=== PATIENT | male | born 1940 | race Caucasian/White ===

== ENCOUNTER → 2023-12-01 12:27 | Outpatient (REF) | payer OTHER, SELFPAY ==
[2023-12-01 16:41] LABS: Blood Urea Nitrogen 30 mg/dl (9-20); Calcium 9.5 mg/dl (8.4-10.2); Carbon Dioxide 28 mmol/L (22-30); Chloride 102 mmol/L (98-107); Glucose 244 mg/dl (70-99); Potassium 4.7 mmol/L (3.5-5.1); Sodium 138 mmol/L (135-145); eGFR > 60.00
== END ==
LOC: HWLAB 12:27
PROVIDERS: ATTENDING PHYSICIAN Surgery Vascular Surgery; FAMILY PHYSICIAN Family Medicine
DX: I73.9 Peripheral vascular disease, unspecified (principal)
CPT/HCPCS: 36415; 80048

== ENCOUNTER → 2023-12-12 09:45 | Outpatient (REF) | payer OTHER, SELFPAY | LOC: HWRAD 09:45 | PROVIDERS: ATTENDING PHYSICIAN Surgery Vascular Surgery; FAMILY PHYSICIAN Family Medicine | DX: I73.9 Peripheral vascular disease, unspecified (principal) | CPT/HCPCS: 75635; Q9967 ==

== ENCOUNTER → 2024-01-16 08:30 | Outpatient (REF) | payer OTHER, SELFPAY | LOC: HWRAD 08:30 | PROVIDERS: ATTENDING PHYSICIAN Surgery Vascular Surgery; FAMILY PHYSICIAN Family Medicine | DX: I73.9 Peripheral vascular disease, unspecified (principal) | CPT/HCPCS: 73630 ==

== ENCOUNTER → 2024-06-25 07:41 | Outpatient (REF) | payer OTHER, SELFPAY | LOC: DHVS 07:41 | PROVIDERS: ATTENDING PHYSICIAN Surgery Vascular Surgery; FAMILY PHYSICIAN Physician Assistant | DX: I73.9 Peripheral vascular disease, unspecified (principal) | CPT/HCPCS: 93922; 93925 ==

== ENCOUNTER → 2025-01-19 08:36 | Outpatient (REF) | payer OTHER, SELFPAY | LOC: RAD 08:36 | PROVIDERS: ATTENDING PHYSICIAN Surgery Vascular Surgery; FAMILY PHYSICIAN Family Medicine | DX: I73.9 Peripheral vascular disease, unspecified (principal) | CPT/HCPCS: 93922; 93925 ==

== ENCOUNTER → 2025-04-26 12:22 | Outpatient (REF) | payer OTHER, SELFPAY | LOC: HWRAD 12:22 | DX: J18.9 Pneumonia, unspecified organism (principal); R05.3 Chronic cough | CPT/HCPCS: 71046 ==

== ENCOUNTER → 2025-08-02 08:40 | Outpatient (REF) | payer OTHER, SELFPAY | LOC: RAD 08:40 | PROVIDERS: ATTENDING PHYSICIAN Physician Assistant; FAMILY PHYSICIAN Family Medicine | DX: I73.9 Peripheral vascular disease, unspecified (principal) | CPT/HCPCS: 93922; 93925 ==

== ENCOUNTER 2025-09-01 18:26 | Inpatient (IN) | payer OTHER, SELFPAY ==
[2025-09-01] VITALS (7 sets, daily range): BP systolic 115–139; BP diastolic 43–83; BMI 26.3; BMI 26.2
[2025-09-01 15:42] LABS: Hematocrit 34.7 % (39.0-52.0); Hemoglobin 11.8 g/dL (13.0-18.0); Mean Corp Hgb Conc. 34.0 g/dL (33.0-37.0); Mean Corpuscular Volume 103.6 fL (80.0-94.0); Nucleated Red Blood Cells % 0 % (-); Platelet Count 313 10^3/uL (130-400); Red Cell Dist. Width 13.3 % (11.5-14.5)
[2025-09-01 15:50] LABS: INR 1.26; PT 15.6 Sec (11.4-14.6)
[2025-09-01 15:51] LABS: APTT 29.6 Sec (23.4-35.0)
[2025-09-01 15:55] LABS: ALT (SGPT) 34 U/L (0-50); AST (SGOT) 41 U/L (17-59); Albumin 3.6 g/dl (3.5-5.0); Alkaline Phosphatase 111 U/L (38-126); Blood Urea Nitrogen 30 mg/dl (9-20); Calcium 9.1 mg/dl (8.4-10.2); Carbon Dioxide 28 mmol/L (22-30); Chloride 103 mmol/L (98-107); Estimated Creatinine Clearance 79 ml/min; Glucose 229 mg/dl (70-99); Potassium 4.6 mmol/L (3.5-5.1); Sodium 136 mmol/L (135-145); Total Protein 6.3 g/dl (6.3-8.2); eGFR > 60.00
[2025-09-01 16:11] LABS: Troponin I 2.730 ng/ml
--- NOTE | 2025-09-01 16:46 | ED.GENMED ---
History of Present Illness
General
Chief Complaint: Chest Pain
Source: patient and family
Time Seen by Provider: 09/01/25 15:13
History of Present Illness
History of Present Illness:
Note:
CHIEF COMPLAINT(S)
Concerns of potential heart attack.
HISTORY OF PRESENT ILLNESS
The patient is an 84-year-old male with a prior diagnosis of atrial fibrillation and peripheral vascular disease, presenting with concerns regarding a possible heart attack. Over the past weekend, the patient reports episodes of chest pain located
under the arm and down the left arm, occurring over three consecutive nights with varying severity. The pain was accompanied by a sensation of dyspepsia. No chest pain has occurred since the weekend. today, the patient also experienced new-onset
exertional dyspnea, noting that he becomes short of breath after walking approximately 12 feet, which was not previously an issue.
PAST MEDICAL AND SURGICAL HISTORY
The patient reports a history of atrial fibrillation, diabetes mellitus, peripheral vascular disease, hypertension, high cholesterol, and previous toe removal due to a foot infection.
CHRONIC MEDICAL CONDITIONS SIGNIFICANTLY AFFECTING CARE
The patient has a history of atrial fibrillation, diabetes mellitus, peripheral vascular disease, hypertension, and hyperlipidemia.
SOCIAL DETERMINANTS AFFECTING HEALTH
The patient did not mention any significant barriers to healthcare or other social determinants affecting health.
MEDICATIONS
The patient mentions not being on anticoagulants for atrial fibrillation, and a past issue with a medication affecting blood flow to extremities, beginning with a 'W.' Current medication details were provided separately to healthcare staff.
REVIEW OF SYSTEMS
- Cardiovascular: Reports chest pain over the weekend, with no current pain.
- Respiratory: Shortness of breath upon exertion.
- Gastrointestinal: Sensation of indigestion during chest pain episodes.
- Musculoskeletal: History of left above-knee amputation and generalized edema in the right lower extremity.
PHYSICAL EXAM
General: Alert, no acute distress.
Skin: Warm, dry.
Head: Normocephalic, atraumatic.
Neck: Supple, trachea midline.
Eye Ears, nose, mouth and throat: Oral mucosa moist.
Cardiovascular: Irregularly irregular heart rate of 82, no murmurs noted.
Respiratory: Fine crackles heard at lung bases.
Gastrointestinal: Abdomen non-distended.
Back: Normal range of motion, Normal alignment.
Musculoskeletal: L AKA noted. RLE with moderate edema.
Neurological: Alert and oriented to person, place, time, and situation, No focal neurologic deficit observed.
Psychiatric: Cooperative, appropriate mood and affect.
PROBLEM LIST
Acute:
- Chest pain over the weekend
- Exertional dyspnea
- Low red blood cell count
Chronic:
- Atrial fibrillation
- Diabetes mellitus
- Hypertension
- Peripheral vascular disease
- Hyperlipidemia
PLAN
1. Conduct laboratory tests to evaluate cardiac enzymes.
2. Obtain a chest X-ray to assess pulmonary status.
3. Monitor and manage any new complaints of chest pain during the hospital stay.
DIFFERENTIAL DIAGNOSIS
The Differential Diagnosis includes, in no particular order and is not limited to:
1. Myocardial infarction
2. Unstable angina
3. Aortic dissection
4. Pulmonary embolism
5. Acute decompensated heart failure
6. Gastroesophageal reflux disease
7. Pneumonia
8. Anemia of chronic disease
9. Atrial fibrillation exacerbation
10. Peripheral arterial disease worsening
EKG
My independent EKG interpretation is:
- Time of EKG: Not specified
- Rhythm: Atrial fibrillation
- Heart rate: 84 bpm
- [place]: Normal axis
- Notable intervals: Not specified
- Abnormalities:
- ST and T-wave changes in inferior leads
- ST and T-wave changes in anterior leads
- No ST elevation to suggest myocardial infarction (SD)
- Anterior R wave progression abnormal
Disposition:
SUMMARY OF ENCOUNTER
The patient is an 84-year-old male with a significant history of peripheral vascular disease, insulin-dependent diabetes mellitus, atrial fibrillation, dyslipidemia, and urinary retention. The patient presented to the emergency department with
concerns about three days of intermittent chest pain, which has since resolved, and shortness of breath on ambulation. Notable findings included ischemic changes on the EKG and an elevated troponin level of 2.73, suggesting possible cardiac ischemia
or a myocardial event.
DISPOSITION
Admit to hospital.
ASSESSMENT
The patient is at risk for an acute coronary syndrome given the elevated troponin level and history of chest pain with EKG showing ischemic changes.
PLAN
The management plan includes the initiation of heparin and continuous cardiac monitoring due to his elevated troponin levels and ischemic EKG changes. The patient will be admitted for further evaluation and management by cardiology.
INDEPENDENT REVIEW OF LABS AND INTERPRETATION OF TESTS
My independent review of the EKG shows ischemic changes, but no acute ST-elevation myocardial infarction.
My independent review of troponin indicates an elevated level at 2.73, consistent with myocardial injury.
MANAGEMENT OF THE PATIENTS CARE WAS DISCUSSED WITH
The case was discussed with Dr. Ramos, who agrees with the initiation of heparin. Additionally, the case was discussed with the hospitalists for admission.
MEDICAL DECISION MAKING
-Complexity of Data Reviewed: Chronic conditions affecting care include diabetes mellitus, atrial fibrillation, peripheral vascular disease, and dyslipidemia. The Differential Diagnosis includes myocardial infarction, unstable angina, peripheral
arterial disease worsening, and atrial fibrillation exacerbation.
-Data:
Category 1
Non-emergency department records reviewed: Discharge summary from 2021 was reviewed.
My independent interpretation of the EKG shows ischemic changes.
The troponin level was independently reviewed and found to be elevated.
Category 3
Discussion of management with Dr. Ramos and hospitalists regarding admission and initiation of heparin.
DIAGNOSIS
1. Suspected acute coronary syndrome, unspecified (I24.9)
2. Atrial fibrillation (I48.91)
3. Peripheral vascular disease, unspecified (I73.9)
4. 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
Past History
Past History
ED Past Medical History: Arrthythmia (Atrial fibrillation), Cancer (colon), HTN, NIDDM, Other (DVT) and Other (Vascular disease)
ED Past Surgical History: Bowel resection, Tonsilectomy and Other (Hernia repair, partial amputation of the left great toe)
Social History
Tobacco: Non-smoker
Alcohol: None
Living: with family
Employment: Employed
Family History
Family History: Negative Diabetes, Hypertension or CAD
Phy Exam
Physical Exam
Physical Exam:
.
Scores
Heart Score for Chest Pain Patients
STEMI patient?: No
History: Highly Suspicious
ECG: Nonspecific Repolarization
Age: >/= 65 years
Risk Factors: >/= 3 Risk Factors or History of CAD
Troponin: >/= 3 x Normal Limit
Heart Score for Chest Pain Patients: 9
Heart Score Risk: 72.7 % MACE over next 6 weeks
Course
Orders/Labs/Results
Orders:
Orders
09/01/25 Lunch
1800 calorie (15 carb) Diabetic
At Your Request: Full Participation
Does patient need a safe tray?: No
09/01/25 15:12
EKG [Electrocardiogram (*1)] Urgent
Reason for Study: Chest Pain
EKG- Treatment ONCE
09/01/25 15:27
Complete Blood Count/With Diff Urgent
Comprehensive Metabolic Panel Urgent
NT-proBNP Urgent
Troponin I Urgent
09/01/25 15:30
PTT Urgent
Prothrombin Time Urgent
09/01/25 16:18
Heparin 4,000 units IV NOW STA
Nursing to Place Non Medication Order As Directed
Physician Order: PTT 6 hours after initial start of Heparin infusion
Above order entered?: Yes
09/01/25 16:22
CR Chest - 2 Views Urgent
Comment:
Reason For Exam: cp, sob
09/01/25 16:30
Heparin 51497 Units/250 ml 25,000 units in 250 ml IV PER PROTOCOL
Weight to be used for heparin protocol in kilograms (kg):: 81.9
Protocol:: Cardiac Tx/Acute Coronary
PTT Goal Range to be used:: PTT 73 to 111 seconds
Order type:: Initial
INITIAL Infusion Dose (UNITS/KG/hr) & then follow protocol:: 12 units/kg/hr
Infusion Dose in UNITS/hr & then follow protocol (UNITS/hr):: 1,000
INFUSION RATE in mL/hr & then follow protocol (mL/hr):: 10
PTT less than or equal to 64 seconds:: Increase rate by 200 units/hr (+ 2 mL/hr)
PTT 64.1 to 72.9 seconds:: Increase rate by 100 units/hr (+ 1 mL/hr)
PTT 73 to 111 seconds:: Target Range. No change in rate.
PTT 111.1 to 130.9 seconds:: Decrease rate by 100 units/hr (- 1 mL/hr)
PTT 131 to 199.9 seconds:: HOLD for 1 hr. Then decrease rate by 200 units/hr (- 2 mL/hr)
PTT greater than or equal to 200 seconds:: HOLD for 2 hrs & Notify Provider. Then decrease by 200 units/hr (-
2 mL/hr)
Lab follow-up:: Each change, PTT q6h until 2 consecutive are therapeutic. Then PTT
daily.
09/01/25 16:34
Aspirin 325 mg PO NOW STA
09/01/25 17:58
Dextrose 50%-Water [Dextrose 50% Syringe] 12.5 grams IV [id number] PRN
Glucagon [GlucaGen] 1 mg IM PRN PRN
09/01/25 17:59
Bedside Glucose Monitoring As Directed
Frequency: AC&HS
Additional Instructions:: Change to q6h if pt on TPN, tube feeding or not eating
09/01/25 18:00
Admit/Transfer Patient As Directed
Co-Sign Provider:
Level of Care: Inpatient admission
Assign to:: IVU
Physician / Group: Winifred Moy
Diagnosis: NSTEMI
Reason for Hospitalization: NSTEMI
Expected length of stay greater than two midnights?: Yes
ELOS- Estimated Length of Stay in days: 2
I certify the patient meets the requirements for IP care: Yes
Atorvastatin [Lipitor] 40 mg PO QPM
Insulin Glargine Lantus [Lantus] 8 units Subcutaneous Insulin Syringe [Syringe-Insulin] 0 unit SC QPM
Metoprolol Xl [Toprol Xl] 25 mg PO DAILY
PRN Pain Medication Management As Directed
May give lesser potent ordered pain med per pt: Yes
preference::
Protocol:: Medication orders for pain may be administered in a
manner that supports deferring to patient preference
when the pt is:
- Requesting an ordered lesser potent pain medication.
Least to most potent pain medications are defined
as: acetaminophen < NSAID < tramadol < opioids
(morphine, oxycodone, hydromorphone).
- Requesting a lesser dose of the same medication IF
ORDERED.
- Requesting a less intrusive route of administration
if both routes are prescribed by the provider (PO <
IV).
09/01/25 18:03
Code Status As Directed
Resuscitation Status: Full Code
09/01/25 20:41
Acetaminophen [Tylenol] 650 mg PO Q4HPRN PRN
Bisacodyl [Dulcolax] 10 mg RECTAL [id number] PRN
Docusate W/Senna [Senokot-S] 1 tablet PO BIDPRN PRN
Morphine Sulfate 2 mg IV Q4HPRN PRN
Polyethylene Glycol Powder [Miralax] 17 grams PO DAILYPRN PRN
09/01/25 20:41
Activity As Directed
Activity Level: With Assistance
Vital Signs As Directed
Frequency: Per unit guidelines
09/01/25 21:50
Troponin I Q6H
09/02/25 03:00
Troponin I Q6H
09/02/25 06:00
EKG [Electrocardiogram (*1)] IN AM
Reason for Study: Chest Pain
Echo 2D MMode Color/Doppler IN AM
Reason for Study: SOB, SD
Comment: Please do in AM prior to cath! Thank you.
NPO
Allow oral meds: Yes
Allow clear liquids: No
Basic Metabolic Panel IN AM
Complete Blood Count/No Diff IN AM
Hgba1c [Glycohemoglobin (HgbA1c)] IN AM
Lipid Profile [Cardiovascular Evaluation] IN AM
Magnesium IN AM
09/02/25 07:30
Insulin Aspart Corrective Low [Novolog Flexpen-Low Resistance] See Protocol SC AC
09/02/25 08:00
Aspirin Chewable [Low Strength Aspirin] 81 mg PO DAILY
Tamsulosin [Flomax] 0.4 mg PO DAILY
09/03/25 06:00
Basic Metabolic Panel IN AM
Complete Blood Count/No Diff IN AM
Magnesium IN AM
09/04/25 06:00
Basic Metabolic Panel IN AM
Complete Blood Count/No Diff IN AM
Magnesium IN AM
09/05/25 06:00
Basic Metabolic Panel IN AM
Complete Blood Count/No Diff IN AM
Magnesium IN AM
09/06/25 06:00
Basic Metabolic Panel IN AM
Complete Blood Count/No Diff IN AM
Magnesium IN AM
09/07/25 06:00
Basic Metabolic Panel IN AM
Complete Blood Count/No Diff IN AM
Magnesium IN AM
09/08/25 06:00
Basic Metabolic Panel IN AM
Complete Blood Count/No Diff IN AM
Abnormal Lab Results
09/01/25 09/01/25
15 15:30
RBC 3.35 L 10^6/uL
(4.70-6.10)
Hgb 11.8 L g/dL
(13.0-18.0)
Hct 34.7 L %
(39.0-52.0)
MCV 103.6 H fL
(80.0-94.0)
MCH 35.2 H pg
(27.0-31.0)
Absolute Lymphs (auto) 1.0 L 10^3/uL
(1.2-3.4)
Absolute Monos (auto) 0.7 H 10^3/uL
(0.1-0.6)
Lymphocytes % 14.3 L %
(20.5-51.1)
PT 15.6 H Sec
(11.4-14.6)
BUN 30 H mg/dl
(9-20)
Glucose 229 H mg/dl
(70-99)
Troponin I 2.730 H* ng/ml
09/01/25 15:27
09/01/25 15:27
Vital Signs
Initial and Last Documented VS:
Initial Vital Signs
Temp Pulse Resp BP Pulse Ox
98.6 F 85 16 121/81 96
09/01/25 15:13 09/01/25 15:13 09/01/25 15:13 09/01/25 15:13 09/01/25 15:13
Last Documented Vital Signs
Temp Pulse Resp BP Pulse Ox
98.7 F 99 18 132/81 92
09/01/25 22:11 09/01/25 23:15 09/01/25 22:11 09/01/25 22:13 09/01/25 22:11
*Pulse Oximetry
SaO2: 93
Oxygen Mode of Delivery: Room air
Patient hypoxic: no
*Critical Care Note
Total Time (30-74mins, 75-104mins- exclusive of procedures): 30 minutes
ED Attending Note
-
Portions of this chart may have been created with voice recognition software.� Occasional wrong word or��sound alike� substitutions may have occurred due to the inherent limitations of voice recognition software.
Discharge Plan
Departure
Patient Disposition: Admit
Date of Disposition: 09/01/25
Time of Disposition: 17:03
Admit to: IVU
Presentation/result/management discussed w/ accepting MD/DO: Hospitalist
Discharge Problem:
Unstable angina, Acute non-ST elevation myocardial infarction (NSTEMI)
Interventions
Interventions:
*Risk Screen - Suicide Last Done: 09/01/25 15:12
*General Assessment Last Done: 09/01/25 15:12
*Neglect/Abuse Screening Last Done: 09/01/25 15:12
*ED COVID-19 Vaccine History Last Done: 09/01/25 20:39
*ED Influenza Vaccine History Last Done: 09/01/25 20:39
[facility] Fall Risk Assessment Tool Last Done: 09/01/25 15:12
*Nursing Disposition Last Done: 09/01/25 20:39
ED- Cardiac Assessment Last Done: 09/01/25 15:12
--- NOTE | 2025-09-01 17:04 | CON.CAR ---
Addendum entered and electronically signed by Juan Jose Ramos MD 09/01/25 17:52:
I saw and examined the patient independently and performed majority of MDM.
The ADMEASURER's note was reviewed and I agree with the note with changes/additions below.
Comment: 84 yo male with PMH of PAD, permanent A fib (declines OAC) is admitted with chest pain. Occurred over weekend: Fri/Fri/Fri. Now chest pain free, but with worsening PIZARRO. Exam with RRR, II/ systolic murmur at apex, L AKA. TnI: 2.7. Cr
0.7. EKG with nonspecific ST changes.
ACS/NSTEMI. Threat to life. Suspect late presentation CO. ASA 324mg, heparin drip. Beta epifanio. Cath and echo this admission.
Permanent A fib. Declines OAC.
Original Note:
Consultation
Consultation Request
Date/Time Consultation Requested: 09/01/25 1630
Date/Time Consultation Performed: 09/01/25 1633
Requesting Provider: Dr. Singh
Performing Provider: Catherine PETERSNO for Dr. Ramos
Reason for Consultation: NSTEMI
Medical History
-
Chief Complaint: chest pain
History of Present Illness:
84 y/o male (patient of Dr. Armenta, last seen in our office 2020) with permanent AFIB (not on AC- declined), DM2 on insulin, dyslipidemia, and PAD with L AKA (follows with Dr. Allison). He is here since he has episodes of left-sided chest discomfort
(described as an 'annoyance', but could not be more specific than that on quality of pain) with radiated to his left arm since Friday AM. He had 3 episodes. They would wake him from sleep. They lasted about 15 minutes. He also reports some
indigestion. Then yesterday he felt SOB and it was worse today. His PCP recommended he come to the ER. In the ER, he is in no distress. He is CP free. His troponin is 2.71. His son and son's GF at bedside.
Past Medical History
Past Medical History: Arrhythmias, Hypercholesterolemia, NIDDM (DM2 on insulin) and Other
Social History
Tobacco: Former Smoker (quit 1987)
Family History
Family History: Reviewed & Not Pertinent
Allergies / Home Medications
Allergy/AdvReac Type Severity Reaction Status Date / Time
No Known Allergies Allergy Verified 05/16/22 15:07
�Medication �Instructions �Recorded �Confirmed �Type
aspirin 81 mg chewable tablet 81 mg PO DAILY #30 tabs 05/30/22 09/01/25 Rx
atorvastatin 20 mg tablet 20 mg PO QPM #30 tabs 05/30/22 09/01/25 Rx
tamsulosin 0.4 mg capsule 0.4 mg PO DAILY #30 caps 05/30/22 09/01/25 Rx
insulin aspart U-100 100 unit/mL 0 unit SC MEALS 09/01/25 09/01/25 History
(3 mL) subcutaneous pen (Novolog
FlexPen U-100 Insulin aspart)
insulin glargine 100 unit/mL (3 16 unit SC QPM 09/01/25 09/01/25 History
mL) subcutaneous pen (Lantus
Solostar U-100 Insulin)
Review of Systems
-
History Source: Patient
All other systems: Negative unless noted
Respiratory: Trouble Breathing
Cardiac: Chest Pain
Physical Exam
Vital Signs
Temp Pulse Resp BP Pulse Ox
98.6 F 87 23 118/70 93
09/01/25 15:13 09/01/25 16:30 09/01/25 16:30 09/01/25 16:22 09/01/25 16:47
Lab Results
09/01/25 15:27
09/01/25 15:27
Troponin I 2.730 ng/ml H* 09/01/25 15:27
Eia-I-Kxyqpzyvazl Pept 2830 pg/ml 09/01/25 15:27
Physical Exam
General: Well Developed, Well Nourished and No Apparent Distress
HEENT: Normocephalic and Anicteric
Respiratory: Non Labored Respirations and Other (diminished to bases)
Cardiac: Regular Rhythm
Musculoskeletal: No Edema
Skin: Warm and Dry
Neuro: AO x 3
Psych: Calm
Impression / Plan
-
NSTEMI:
-currently CP free
-likely missed CO over the weekend
-this diagnosis is threat to life
-full dose ASA, IV heparin, which requires intensive monitoring
-trend trops, obtain echo
-cardiac cath tomorrow (environmental laboratory technician gas charger notified). NPO after MN. Of note, I discussed with patient that if he requires stent placement, medication compliance will be extremely important. He understands and agrees.
-add BB, continue statin (but recommend increase dose to high intensity) and check lipids
PAD with hx L AKA:
-on ASA, statin
-follows with Dr. Allison
DM2 on insulin:
-check hgbA1C
-management per primary team
HLD:
-increase statin, check lipids
Permanent AFIB:
-rate-controlled, monitor rates with addition of metoprolol
-has declined OAC as OP per notes
Data Reviewed
-
EKG: Tracing Personally Visualized and interpreted (AFIB 84 BPM, PVC)
Medical Tests (Nuc Med, Echo etc): Other (echo ordered )
Labs: Labs Reviewed by me
Scores
JUAN DANIEL for NSTEMI
Age >/= 65: Yes
>/=3 CAD risk factors-HTN,High Chol,Fam hx CAD,DM,Smoker: No
Known CAD (stenosis >/=50%): No
ASA use in past 7 days: Yes
Severe angina (>/= 2 episodes in 24 hrs): No
EKG ST Changes >/= 0.5mm: No
Positive cardiac marker: Yes
Score: 3
Risk at 14 days-mortality, new/recurrent CO, severe ischemia: Intermediate Risk- 13% Risk at 14 days- all cause mortality, new or recurrent CO, or severe recurrent ischemia requiring urgent revascularization
--- NOTE | 2025-09-01 17:28 | HPS.HSE ---
Family Physician
-
Family Physician: Aga Fallon
Chief Complaint
-
Chest Pain
History of Present Illness
84M permanent AFIB IDDM HLD PAD L AKA p/w progressive exertional dyspnea following episodes of left-sided chest discomfort/pain/radiations to Lt arm that started over the weekend. Initial discomfort woke him from sleep, episodes lasted for minutes
at a time. Pain since resolved, however patient noted progressive exertional dyspnea, days following onset chest pain symptoms, prompting ED evaluation. Troponin 2.730. Overall presentation/history concerning for missed DE/NSTEMI.
Medical History
Past Medical History
Past Medical History: Reports Other (as above)
Past Surgical History: Reports Other (as above)
Social History
Tobacco: Non-smoker
Alcohol: Occasional
Drug: None
Living: With Family
Family History
Family History: Not pertinent (reviewed)
Allergies / Home Medications
Allergies reflects when Allergies were last updated in [facility].
Home Medications with original date entered in [facility]
Allergy/Medication List:
Allergies
Allergy/AdvReac Type Severity Reaction Status Date / Time
No Known Allergies Allergy Verified 05/16/22 15:07
Home Medications
aspirin 81 mg chewable tablet 81 mg PO DAILY #30 tabs 05/30/22
atorvastatin 20 mg tablet 20 mg PO QPM #30 tabs 05/30/22
tamsulosin 0.4 mg capsule 0.4 mg PO DAILY #30 caps 05/30/22
insulin aspart U-100 100 unit/mL (3 mL) subcutaneous pen (Novolog FlexPen U-100 Insulin aspart) 0 unit SC MEALS 09/01/25
insulin glargine 100 unit/mL (3 mL) subcutaneous pen (Lantus Solostar U-100 Insulin) 16 unit SC QPM 09/01/25
Review of Systems
-
A 12 point ROS was completed and negative except as noted: Yes
Constitutional: Reports Other (as below)
Physical Exam
Vital Signs
Vital Signs
Temp Pulse Resp BP Pulse Ox
98.6 F 89 23 115/43 94
09/01/25 15:13 09/01/25 17:00 09/01/25 17:00 09/01/25 17:00 09/01/25 17:00
Physical Exam
General: Other (as below)
Laboratory Results
-
09/01/25 15:27
09/01/25 15:27
Laboratory Results
PT 15.6 Sec (11.4-14.6) H 09/01/25 15:30
INR 1.26 09/01/25 15:30
APTT 29.6 Sec (23.4-35.0) 09/01/25 15:30
Total Bilirubin 0.4 mg/dl (0.2-1.3) 09/01/25 15:27
AST 41 U/L (17-59) 09/01/25 15:27
ALT 34 U/L (0-50) 09/01/25 15:27
Alkaline Phosphatase 111 U/L (38-126) 09/01/25 15:27
Troponin I 2.730 ng/ml H* 09/01/25 15:27
Impression/Plan
-
ROS
General: Denies fever chills night sweats unexpected weight loss
Neuro: Denies seizure shaking loss of consciousness dizziness vertigo
Psych: denies depression hallucinations confusion manic episodes
Endocrine: Denies polyuria polydipsia polyphagia heat/cold intolerance
HEENT: Denies blindness visual disturbances epistaxis
Pulmonary: denies coughing hemoptysis sneezing sob dyspnea on exertion
Cardiovascular: reports intermittent episodes Chest pain since resolved, reports chronic Right leg swelling
Hematology: denies signs symptoms of anemia easy bruising/bleeding
Gastrointestinal: denies nausea vomiting diarrhea constipation hematemesis hematochezia melena
Genito-Urinary: denies retention incontinence dysuria
Musculoskeletal: denies joint pain weakness
Dermatology: denies rash laceration bruising
Physical Exam
General: No pallor, cyanosis, or jaundice.
HEENT: Throat clear. PERRLA Normocephalic atraumatic
NECK: Supple. No JVD Carotid Bruits
RESPIRATORY: Lungs clear to auscultation. No crackles wheezes stridor
CVS: S1, S2 normal. RRR. No murmur, rub or gallop.
ABDOMEN: Soft, non-tender. No distension. BS+/normal.
EXTREMITIES: Lt AKA pitting edema RLE +2
MACHINED PARTS QUALITY INSPECTOR: AOx3 conversant coherent
IMPRESSION:
84M permanent AFIB IDDM HLD PAD L AKA p/w progressive exertional dyspnea following episodes of left-sided chest discomfort/pain/radiations to Lt arm that started over the weekend. Initial discomfort woke him from sleep, episodes lasted for minutes
at a time. Pain since resolved, however patient noted progressive exertional dyspnea, days following onset chest pain symptoms, prompting ED evaluation. Troponin 2.730. Overall presentation/history concerning for missed DE/NSTEMI.
PLAN:
#NSTEMI
#PAD L AKA
#HLD
#permanent afib (declined AC)
#Acute Hypoxia/Exertional Dyspnea
IVU admit
trend troponin
Cardio eval appreciated NPO after midnight for Cath
hep gtt, asa, statin, BB
Check ECHO
O2 prn
Daily Wt I/O
#DM
check A1c
Insulin sliding scale
Lantus reduced 8U QPM in lieu of NPO after midnight (16U qpm at home)
DVT ppx Hep gtt
Full Code
Discussed with patient and patient's son Jan
I spent a total of 76 minutes with the patient or on the floor. More than 50% of this time involved counseling and coordination of care.
[2025-09-01] MEDS: ASPIRIN 325 MG PO (17:52)
[2025-09-01] MEDS: HEPARIN 4000 UNITS IV (17:52)
[2025-09-01] MEDS: HEPARIN 25000 UNITS/250 ML IV (18:15)
[2025-09-01] MEDS: LIPITOR 40 MG PO (19:02)
[2025-09-01] MEDS: LANTUS 0.08 UNITS SC (19:36)
[2025-09-01 19:41] LABS: Glucose - Point of Care 169 mg/dl (70-99)
[2025-09-01] MEDS: PEPCID 20 MG PO (21:27)
[2025-09-01 22:01] LABS: Glucose - Point of Care 153 mg/dl (70-99)
[2025-09-01] MEDS: TYLENOL 1000 MG PO (22:18)
[2025-09-01 22:31] LABS: Troponin I 3.880 ng/ml
[2025-09-02] VITALS (41 sets, daily range): BP systolic 99–131; BP diastolic 45–109; BMI 26.2
[2025-09-02] MEDS: LIDOCAINE 4% PATCH 1 PATCH TOPICAL (00:47)
[2025-09-02 00:52] LABS: APTT 64.9 Sec (23.4-35.0)
--- NOTE | 2025-09-02 00:53 | PTCARENOTE ---
Pt admitted to room 2251. Pt AFib on monitor VSS. Pt denies chest pain or SOB, c/o chronic back pain. Pt on Heparin gtt per order. Pt oriented to the room, call kiser within reach. NPO after midnight
[2025-09-02 06:02] LABS: Hematocrit 34.4 % (39.0-52.0); Hemoglobin 11.9 g/dL (13.0-18.0); Mean Corp Hgb Conc. 34.6 g/dL (33.0-37.0); Mean Corpuscular Volume 104.2 fL (80.0-94.0); Platelet Count 320 10^3/uL (130-400); Red Cell Dist. Width 13.2 % (11.5-14.5)
[2025-09-02 06:18] LABS: Blood Urea Nitrogen 22 mg/dl (9-20); Calcium 8.7 mg/dl (8.4-10.2); Carbon Dioxide 25 mmol/L (22-30); Chloride 106 mmol/L (98-107); Estimated Creatinine Clearance 76 ml/min; Glucose 115 mg/dl (70-99); HDL Cholesterol 56 mg/dl; LDL Cholesterol, Calculated 18 mg/dl; Magnesium 2.0 mg/dl (1.6-2.3); Potassium 4.4 mmol/L (3.5-5.1); Sodium 138 mmol/L (135-145); Very Low Density Lipoprotein 9 mg/dl (0-30); eGFR > 60.00
[2025-09-02 06:38] LABS: Troponin I 3.380 ng/ml
--- NOTE | 2025-09-02 07:28 | W.PN.HOSP.TC ---
Today's Communication/Plan
-
see a/p
Assessment / Plan
Assessment / Plan
Physical Exam
General: No pallor, cyanosis, or jaundice.
HEENT: Throat clear. PERRLA Normocephalic atraumatic
NECK: Supple. No JVD Carotid Bruits
RESPIRATORY: Lungs clear to auscultation. No crackles wheezes stridor, NC oxygen supplementation
CVS: S1, S2 normal. RRR. No murmur, rub or gallop.
ABDOMEN: Soft, non-tender. No distension. BS+/normal.
EXTREMITIES: Lt AKA pitting edema RLE +2
NURSE STAFF: AOx3 conversant coherent
IMPRESSION:
84M permanent AFIB IDDM HLD PAD L AKA p/w progressive exertional dyspnea following episodes of left-sided chest discomfort/pain/radiations to Lt arm that started over the weekend. Initial discomfort woke him from sleep, episodes lasted for minutes
at a time. Pain since resolved, however patient noted progressive exertional dyspnea, days following onset chest pain symptoms, prompting ED evaluation. Troponin 2.730. Overall presentation/history concerning for missed MD/NSTEMI.
PLAN:
#NSTEMI
#PAD L AKA
#HLD
#permanent afib (declined AC)
#Acute Hypoxia/Exertional Dyspnea
IVU admit
Troponin trended to peak 3.880
Cardio eval appreciated cath performed 09/02 noted multivessel dz mod , LDL goal <55
CTS eval appreciated
hep gtt, asa, statin, BB, Valsartan
ECHO appreciated EF 25-30% severe mild/mod MR TR
O2 prn
Daily Wt I/O
#DM
A1c 8.9
Insulin sliding scale
Lantus reduced 8U QPM (16U qpm at home), sugars well controlled so far, cont current dose for now
monitor and titrate insulin regimen as necessary
DVT ppx Hep gtt
Full Code
I spent a total of 40 minutes with the patient or on the floor. More than 50% of this time involved counseling and coordination of care.
Anticipated Discharge: 24 - 48 hours
Subjective/Interval History
-
Date of Service: September 02, 2025
No acute distress, resting comfortably in bed. Overall reports feeling well at rest. denies new acute issues.
Objective Data
-
Labs:
Laboratory Results
09/02/25 09/02/25
00:29 04:04
WBC 6.7
Hgb 11.9 L
Hct 34.4 L
Plt Count 320
APTT 64.9 H Cancelled
Sodium 138
Potassium 4.4
Chloride 106
Carbon Dioxide 25
BUN 22 H
Creatinine 0.7
Glucose 115 H
Calcium 8.7
Vital Signs:
Vital Signs
Temp Pulse Resp BP Pulse Ox
98.3 F 86 18 125/81 98
09/02/25 03:57 09/02/25 04:15 09/02/25 03:57 09/02/25 03:45 09/02/25 03:57
[2025-09-02 07:33] LABS: Glucose - Point of Care 104 mg/dl (70-99)
[2025-09-02] MEDS: NOVOLOG FLEXPEN-LOW RESISTANCE SC ×3 (07:52→18:28)
--- NOTE | 2025-09-02 09:12 | CM ---
Reviewed chart. Met with Mr. Manzo to review discharge plans. He states he is feeling okay and going for Cardiac Cath. today. He states prior to admission he resides with his spouse in a spilt level home. He states he has three steps to get to
the living room and seven steps to get to bedroom/full bathroom. He states he has a powder room on the first floor. He states prior to admission he ambulates with the walker if he needs to carry something. He states he uses his crutches or single
point cane to go up and down the steps. He states he has has [facility]NA in the past, He states [facility] [place] for his prosthesis. He states he has a prothesis, single point cane, walker crutches, wheelchair and transport chair. He
states his spouse has a fx. hip that would be a high risk to repair. He states she e has 24 x 7 home care for her. He states he is paying privately for these services. He states he has a prescription plan and uses [facility]. Medical work-up
in progress. The discharge plan is to return home home with his spouse and VNA Services if indicated
[2025-09-02] MEDS: LOW STRENGTH ASPIRIN 81 MG PO (09:17)
[2025-09-02] MEDS: FLOMAX 0.4 MG PO (09:17)
[2025-09-02 09:22] LABS: APTT 71.5 Sec (23.4-35.0)
[2025-09-02 10:56] LABS: Glycohemoglobin (HgbA1c) 8.9 % (4.0-5.9)
[2025-09-02 11:47] LABS: Glucose - Point of Care 89 mg/dl (70-99)
--- NOTE | 2025-09-02 12:46 | PTCARENOTE ---
Pt's sacrum red but blanchable, silicone border foam dsg applied for protection, Pt encouraged to turn from side to side.
[2025-09-02] MEDS: REMOVE LIDOCAINE PATCH 1 PATCH REMOVE (13:12)
[2025-09-02] MEDS: MORPHINE SULFATE 2 MG IV ×2 (16:18→20:56)
--- NOTE | 2025-09-02 16:58 | PTCARENOTE ---
Rec'd Pt s/p cardiac cath, A,A+Ox3, cath laboratory technician nurses removed R femoral arterial and venous sheaths without incident. R femoral dsg D+I. R radial band inact and dry, +radial pulse, R brachial dsg D+I.
[2025-09-02 17:00] LABS: Glucose - Point of Care 90 mg/dl (70-99)
--- NOTE | 2025-09-02 17:01 | CONSULT.CT ---
Consultation
-
Date/Time Consultation Requested: 09/02/25
Date/Time Consultation Performed: 09/02/25
Requesting Provider: Juan Jose Ramos
Performing Provider: Loli PETERSON for Darryl Dominguez MD
Reason for Consultation: AVR/CABG evaluation
Patient History
Physicians
Family Physician: Aga Fallon MD
Outpatient Last Repairer Helper: Jeanette Armenta MD
Inpatient Last Repairer Helper: [facility]
History of Present Illness
Lenard Manzo is an 84 year old right hand dominant male with PMH significant for PAD s/p L AKA, T2DM, HTN, HLD, AF, BPH, who presented to [facility] ED on 09/01/25 with weakness and shortness of breath. Initially he noted intermittent chest pressure
of varied intensity last weekend which subsided on 08/29/25. Troponin I elevation (2.7>3.8>3.3) was consistent with NSTEMI. Patient underwent a TTE on 09/02/2025 which reported a reduced ejection fraction of 25-30% form last documented TTE in 2018
with EF 55-60% and severe aortic stenosis. Left heart cath reported triple-vessel coronary disease.
Past Medical History
Past Medical History: Atrial Fib (no anticoagulation), BPH, GERD, HTN, Hypercholesterolemia, NIDDM, Valvular Disease (aortic stenosis) and Other (L retinal occlusion)
Past Surgical History
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
Dental History
last dental exam unknown 'years'
Family History
Mother: at Age
Father: at Age
Social History
Drug: None
Tobacco: Former Smoker (quit 1987)
Personal: ( with recent hip fracture)
Living: With Spouse
Employment: Retired ([employer])
Allergies
Allergy/AdvReac Type Severity Reaction Status Date / Time
No Known Allergies Allergy Verified 05/16/22 15:07
Home Medications
�Medication �Instructions �Recorded �Confirmed �Type
aspirin 81 mg chewable tablet 81 mg PO DAILY #30 tabs 05/30/22 09/01/25 Rx
atorvastatin 20 mg tablet 20 mg PO QPM #30 tabs 05/30/22 09/01/25 Rx
tamsulosin 0.4 mg capsule 0.4 mg PO DAILY #30 caps 05/30/22 09/01/25 Rx
Centrum Men 09/01/25 History
insulin aspart U-100 100 unit/mL 0 unit SC MEALS 09/01/25 09/01/25 History
(3 mL) subcutaneous pen (Novolog
FlexPen U-100 Insulin aspart)
insulin glargine 100 unit/mL (3 16 unit SC QPM 09/01/25 09/01/25 History
mL) subcutaneous pen (Lantus
Solostar U-100 Insulin)
Review of Systems
-
History Source: Patient
General: Reports No Symptoms
HEENT: Reports No Symptoms
Respiratory: Reports PIZARRO
Cardiac: Reports Known Vascular Disease
Abdomen/GI: Reports No Symptoms
: Reports Nocturia
Musculoskeletal: Reports Other (+ R DP Doppler signal)
Skin: Reports Other (RLE PVD skin discoloration)
Neurological: Reports No Symptoms
Vascular: Reports Other (PAD)
Physical Exam
Vital Signs
Temp 97.6 F 09/02/25 11:39
Temp route: Oral 09/02/25 11:39
Pulse 84 09/02/25 16:45
Rhythm: Atrial fibrillation 09/02/25 08:21
Resp Rate 18 09/02/25 11:39
Blood pressure 128/74 09/02/25 16:40
Blood pressure extremity used: Right upper arm 09/02/25 11:39
Position: Lying 09/02/25 11:39
MAP (cuff-Andre Monitor) 89 09/02/25 16:40
SaO2 95 09/02/25 16:49
Nasal Cannula flow liters per minute 3 09/02/25 16:49
Oxygen Mode of Delivery Room air 09/01/25 16:47
Other oxygen comment pulse ox on 2nd toe of right foot 09/02/25 16:39
Can the patient verbally communicate their pain? Yes 09/02/25 16:18
Pain scale ratin 09/02/25 16:18
Actual Weight 75.8 kg 09/01/25 20:47
Body Mass Index (BMI) 26.2 09/01/25 20:47
Labs
09/02/25 04:04
09/02/25 04:04
PT 15.6 Sec (11.4-14.6) H 09/01/25 15:30
APTT 71.5 Sec (23.4-35.0) H 09/02/25 08:56
Hemoglobin A1c 8.9 % (4.0-5.9) H 09/02/25 04:04
Troponin I 3.380 ng/ml H* 09/02/25 04:04
Jla-F-Mlwwirkxpnu Pept 2830 pg/ml 09/01/25 15:27
Diagnostic Studies
TTE 09/02/25:
EF 25-30%. Severe hypokinesis of inferior and inferoseptal segments from base to apex. Low flow, low gradient aortic stenosis: severe vs psuedo-severe in setting of depressed LVEF. The peak aortic valve gradient is 21.0 mmHg. The mean aortic valve
gradient is 11.0 mmHg. The aortic valve area, calculated by the continuity equation, is 0.7 cm². SVI 15. Mild aortic regurgitation seen. Mild/moderate mitral valve regurgitation. Mild/moderate tricuspid regurgitation. Estimated pulmonary artery
pressure of 55 mmHg assuming a right atrial pressure of 15 mmHg. Moderate/severely elevated PASP. Compared to 10/06/17: LVEF has declined from 55-60% to 25-30%, with new inferior wall motion abnormality. Low flow low gradient is new.
RHC/LHC (attempt R radial>R femoral accessed) with Craig Valenzuela 09/02/25:
RA 15; PA 48/26 (mean 34); PCWP 22 mmHg; CO/CI 4.33/2.32 L/min/m2
LM: 30% mid body narrowing and excellent contrast reflux.
LAD: Large vessel giving rise to a moderate caliber branching diagonal. There is focal likely severe ostial stenosis of the diagonal. There is a focal, eccentric, calcified 90% stenosis in the mid-portion of the LAD.
Ramus: Large-caliber vessel with severe nodular calcification extending from the ostium to the midportion. There is relative sparing of the distal vessel
LCx: Moderate caliber vessel giving rise to a small OM1, small OM 2, and moderate caliber LPL branch. There is severe nodular calcification extending from the ostial to mid vessel with relative sparing of the branch vessels.
RCA: Moderate caliber vessel giving rise to a totally occluded RPDA and subtotally occluded RPL system. There is diffuse moderate calcific disease throughout the vessel prior to the occluded distal vessels.
Exam
General: No Apparent Distress
HEENT: Normocephalic, Anicteric, Moist Mucous Membranes and PERRLA
Neck: Trachea Midline
Respiratory: Clear
Cardiac: Irregular Rhythm
GI: Soft, Non Tender and Normal Bowel Sounds
Rectal: Deferred by Provider
Skin: Warm and Dry
Neuro: AO x 3 and No Motor Deficits
Extremities: Pulses (R DP Doppler signal)
Lymph: No Lymphadenopathy
Psych: Calm
Assessment / Plan
-
84-year-old male with PMH significant for atrial fibrillation (not on anticoagulation), PAD s/p L AKA, T2DM, admitted with NSTEMI. Found to have multivessel coronary disease and low-flow severe aortic valve stenosis with KIMBERLY 0.7 cm�, mild AI,
mild-moderate MR, mild-moderate TR, and EF of 25-30%
- Case d/w surgeon who will review imaging and discuss risk/benefit with patient
- will obtain TAVR CT
- STS RISK SCORE 15.5%
Data Reviewed
-
EKG: Report Reviewed by me and Discussed with Physician
Registered Massage Therapist: Report Reviewed by me and Discussed with Physician
Echo: Report Reviewed by me and Discussed with Physician
Radiology: Report Reviewed by me and Discussed with Physician
Labs: Labs Reviewed by me and Discussed with Physician
--- NOTE | 2025-09-02 17:58 | W.PN.UPDATE ---
Addendum entered and electronically signed by Darryl Dominguez MD 09/03/25 09:12:
CARDIAC SURGERY ATTENDING:
It was my pleasure to evaluate Mr. Lenard Manzo. He is an 84-year-old gentleman with a complex past medical history as noted in our onsultation. I have reviewed his medical history, hospital course, and available imaging. His STS risk is as
calculated below.
Given the appearance of his coronary anatomy coupled with his comorbidities and STS risk profile, I would strongly advocate for a PCI approach. I discussed this case with my interventional cardiology colleague. In light of this patient's surgical
risk and comorbidities, the consensus is to move forward with a PCI strategy. While the patient's aortic valve is not normal and there is some degree of , it is also felt that this does not require intervention at this time with only plans for
ongoing monitoring.
Will continue to follow closely
Darryl Dominguez MD
[phone]
Original Note:
Update Note
Progress Note Update
STS RISK SCORE
Procedure Type:�CABG + AVR
Perioperative Outcome Estimate %
Operative Mortality 15.5%
Morbidity & Mortality 33.9%
Stroke 3.88%
Renal Failure 7.56%
Reoperation 6.46%
Prolonged Ventilation 26.2%
Deep Sternal Wound Infection 0.554%
Long Hospital Stay (>14 days) 36.2%
Short Hospital Stay (<6 days)* 5.51%
Clinical Summary
Planned Surgery: CABG + AVR, Urgent, First cardiovascular surgery
Demographics: 84 year old, male, 75.8kg, 170cm, BMI: 26.2 kg/m�
Lab Values: Creatinine: 0.7 mg/dL, Hematocrit: 34.4%, WBC Count: 6.7 10�/�L, Platelet Count: 585919 cells/�L
PreOp Medications: Insulin diabetes control
Substance Abuse: Former smoker, Alcohol use: <=1 drink/week
Risk Factors / Comorbidities: Insulin-dependent Diabetes Mellitus, Hypertension
Vascular RF: Peripheral Artery Disease
Cardiac Status: Acute heart failure, NYHA Class III, Ejection Fraction = 27%
Coronary Artery Disease: 3 vessels diseased, Non-ST Elevation W[place], WV: 1 to 7 Days
Valve Disease: Aortic Stenosis, Mild AR, Moderate MR, Moderate TR
Arrhythmia: Recent A-fib, Persistent
--- NOTE | 2025-09-02 18:28 | ITS.CL.PN ---
Applied Mat[employer]ian - Procedure Note
Procedure
Procedure Note:
CARDIAC CATHETERIZATION REPORT
Date of Procedure: 09/02/2025
Referring: Dr. See Ramos MD, PhD
Indication: NSTEMI, new severely reduced EF, concern for severe aortic stenosis
PROCEDURE(S)
1. right heart catheterization
2. left heart catheterization
3. coronary angiography
ACCESS
1. 6F right radial artery (abandoned, unable to advance 6F sheath due to radial artery calcium; closure: TR band)
2. 5F right antecubital vein (abandoned, unable to advanced 5F swan due to venous loop; closure: manual hemostasis)
3. 6F right common femoral artery (closure: manual hemostasis)
4. 6F right femoral vein (closure: manual hemostasis)
CATHETERS
1. 5F [place]
2. 6F JR4
3. 6F JL4
MODERATE SEDATION: 45 minutes of moderate sedation was utilized. An independent senior medical writer was present to assist with and help manage the patient's level of consciousness and physiologic status.
HEMODYNAMIC DATA
LV 119/13 (EDP 19) mmHg
AO 117/67 (mean 87) mmHg
RA 15 mmHg
RV 46/12 (EDP 16) mmHg
PA 48/26 (mean 34) mmHg
PCWP 22 mmHg
SaO2 88.7%
SvO2 57.7%
Hb 12.8 g/dL
CO/CI 4.33/2.32 L/min/m2
SVR 1329 dsc*-5
PVR 3.7 [place] units
Valve study: mean gradient of 7 mmHg at HR 86 given SVI 26 cm/m2 and KIMBERLY 1.6 cm2
CORONARY ANGIOGRAPHY
Dominance: right
LM: Large vessel with 30% mid body narrowing and excellent contrast reflux.
LAD: Large vessel giving rise to a moderate caliber branching diagonal. There is focal likely severe ostial stenosis of the diagonal. There is a focal, eccentric, calcified 90% stenosis in the mid-portion of the LAD.
Ramus: Large-caliber vessel with severe nodular calcification extending from the ostium to the midportion. There is relative sparing of the distal vessel
LCx: Moderate caliber vessel giving rise to a small OM1, small OM 2, and moderate caliber LPL branch. There is severe nodular calcification extending from the ostial to mid vessel with relative sparing of the branch vessels.
RCA: Moderate caliber vessel giving rise to a totally occluded RPDA and subtotally occluded RPL system. There is diffuse moderate calcific disease throughout the vessel prior to the occluded distal vessels.
RADIATION: dose 450 mGy; DAP 37.5 Gy*cm2; fluoroscopy time 10.9 min
CONCLUSIONS
1. 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
2. Low-flow low-gradient moderate aortic valve stenosis
2. Severe multivessel coronary artery disease as described
RECOMMENDATIONS
1. Discussion of optimal revascularization strategy. The patient is a diabetic with high Syntax disease and good anatomic bypass graft targets. However, he has severe PVD and is clearly high risk for open heart surgery. CABG would ideally be
performed with POLLARD-LAD and additional conduits to the diagonal, OM, ramus, and RPL +/- RPDA. Percutaneous options are more limited, and the most reasonable strategy would be initial PCI of the mid-LAD, which may require atherectomy. Although
comprising large territories, the LCx and Ramus are heavily calcified and diseased back to their ostia, and revascularization of these branches would require complex plaque modification with stents back to the LM trifurcation, a high risk procedure
that may be of limited benefit beyond LAD revascularization and optimal medical therapy.
2. Cont. heparin awaiting revascularization decision
3. Cont. ASA, hold P2Y12 pending revascularization decision. If opt for PCI, would load with Plavix and continue for 1 year
4. High intensity statin and additional lipid lowering agents to achieve LDL<55
4. Cont. metoprolol, add valsartan, further GDMT for HFrEF as allowed by blood pressure
Copy to: Dr. Jason Valenzuela MD, PhD (utilization management nurse);Dr. Aga Fallon DO (PCP)
Signed: Jason Valenzuela MD, PhD
[2025-09-02] MEDS: LIPITOR 40 MG PO (19:20)
[2025-09-02] MEDS: LANTUS 0.08 UNITS SC (19:20)
[2025-09-02 19:26] LABS: Glucose - Point of Care 154 mg/dl (70-99)
--- NOTE | 2025-09-02 20:00 | PTCARENOTE ---
Assumed care at 1900. Patient alert and oriented x3. TR band to right wrist removed at 1999. Dressing placed. Right radial, right brachial, and right groin site dressings clean, dry, and intact. Patient reports chronic back pain. Pain management
plan reviewed with patient. Patient verbalized understanding. Patient remains Afib on tele. Remains on 2L via nasal cannula. Patient aware of plan of care. Call kiser and personal belongings within reach.
[2025-09-02] MEDS: PROTONIX 40 MG PO (21:53)
[2025-09-02] MEDS: HEPARIN 25000 UNITS/250 ML IV (22:00)
[2025-09-02 22:25] LABS: Glucose - Point of Care 134 mg/dl (70-99)
[2025-09-03] VITALS (10 sets, daily range): BP systolic 97–119; BP diastolic 57–73; PULSE 95; O2SAT 88; BMI 26.1
[2025-09-03 04:29] LABS: Hematocrit 33.3 % (39.0-52.0); Hemoglobin 11.5 g/dL (13.0-18.0); Mean Corp Hgb Conc. 34.5 g/dL (33.0-37.0); Mean Corpuscular Volume 102.5 fL (80.0-94.0); Platelet Count 290 10^3/uL (130-400); Red Cell Dist. Width 13.3 % (11.5-14.5)
[2025-09-03 04:41] LABS: APTT 61.8 Sec (23.4-35.0)
[2025-09-03 04:52] LABS: Blood Urea Nitrogen 23 mg/dl (9-20); Calcium 8.4 mg/dl (8.4-10.2); Carbon Dioxide 23 mmol/L (22-30); Chloride 107 mmol/L (98-107); Estimated Creatinine Clearance 76 ml/min; Glucose 100 mg/dl (70-99); Magnesium 2.0 mg/dl (1.6-2.3); Potassium 4.3 mmol/L (3.5-5.1); Sodium 134 mmol/L (135-145); eGFR > 60.00
--- NOTE | 2025-09-03 07:47 | W.PN.HOSP.TC ---
Today's Communication/Plan
-
see a/p
Assessment / Plan
Assessment / Plan
Physical Exam
General: No pallor, cyanosis, or jaundice.
HEENT: Throat clear. PERRLA Normocephalic atraumatic
NECK: Supple. No JVD Carotid Bruits
RESPIRATORY: Lungs clear to auscultation. No crackles wheezes stridor, Stable respiratory status on room air
CVS: S1, S2 normal. RRR. No murmur, rub or gallop.
ABDOMEN: Soft, non-tender. No distension. BS+/normal.
EXTREMITIES: Lt AKA pitting edema RLE +2
SLOT FLOOR SUPERVISOR: AOx3 conversant coherent
IMPRESSION:
84M permanent AFIB IDDM HLD PAD L AKA p/w progressive exertional dyspnea following episodes of left-sided chest discomfort/pain/radiations to Lt arm that started over the weekend. Initial discomfort woke him from sleep, episodes lasted for minutes
at a time. Pain since resolved, however patient noted progressive exertional dyspnea, days following onset chest pain symptoms, prompting ED evaluation. Troponin 2.730. Overall presentation/history concerning for missed [place]/NSTEMI.
PLAN:
#NSTEMI, multivessel Dz
#Aortic Stenosis
#PAD L AKA
#HLD
#permanent afib (declined AC)
#Acute Hypoxia/Exertional Dyspnea
IVU admit
Troponin trended to peak 3.880
Cardio eval appreciated cath performed 09/02 noted multivessel dz mod , LDL goal <55
CTS eval appreciated
hep gtt, asa, statin, BB, Valsartan
ECHO appreciated EF 25-30% severe mild/mod MR TR
O2 prn
Daily Wt I/O
revascularization planning
#DM
A1c 8.9
Insulin sliding scale
Lantus reduced 8U QPM (16U qpm at home), sugars well controlled so far, cont current dose for now
monitor and titrate insulin regimen as necessary
Regular Diet per patient's request
PT/OT SNF rehab
DVT ppx Hep gtt
Full Code
I spent a total of 40 minutes with the patient or on the floor. More than 50% of this time involved counseling and coordination of care.
Anticipated Discharge: > 48 hours
Subjective/Interval History
-
Date of Service: September 03, 2025
No acute distress, sitting up comfortably in bed. Stable respiratory status on room air. Reports feeling well.
Objective Data
-
Labs:
Laboratory Results
09/02/25 09/03/25 09/03/25
21:00 04:06 12:00
WBC 6.2
Hgb 11.5 L
Hct 33.3 L
Plt Count 290
APTT Cancelled 61.8 H Pending
Sodium 134 L
Potassium 4.3
Chloride 107
Carbon Dioxide 23
BUN 23 H
Creatinine 0.7
Glucose 100 H
Calcium 8.4
Vital Signs:
Vital Signs
Temp Pulse Resp BP Pulse Ox
97.7 F 88 16 113/70 96
09/03/25 07:46 09/03/25 07:46 09/03/25 07:46 09/03/25 04:03 09/03/25 07:46
I&O
09/02/25 09/03/25 09/04/25
06:59 06:59 06:59
Intake Total 480 / 480
Output Total 1350 / 1350
Balance -870 / -870
[2025-09-03 07:50] LABS: Glucose - Point of Care 111 mg/dl (70-99)
[2025-09-03] MEDS: NOVOLOG FLEXPEN-LOW RESISTANCE SC (07:53)
[2025-09-03] MEDS: FLOMAX 0.4 MG PO (08:26)
[2025-09-03] MEDS: LOW STRENGTH ASPIRIN 81 MG PO (08:26)
--- NOTE | 2025-09-03 09:27 | W.PN.CD ---
Today's Communication / Plan
-
deciding on revascularization strategy
cont ASA, heparin drip
Impression / Plan
-
NSTEMI:
-threat to life
-currently CP free
-revascularization strategy is being discussed between PCI and CABG
-good anatomic bypass graft targets. However, he has severe PVD and is clearly high risk for open heart surgery. CABG would ideally be performed with POLLARD-LAD and additional conduits to the diagonal, OM, ramus, and RPL +/- RPDA.
Percutaneous options are more limited, and the most reasonable strategy would be initial PCI of the mid-LAD, which may require atherectomy. Although comprising large territories, the LCx and Ramus are heavily calcified and diseased back to their
ostia, and revascularization of these branches would require complex plaque modification with stents back to the LM trifurcation, a high risk procedure that may be of limited benefit beyond LAD revascularization and optimal medical therapy.
-continue heparin drip with monitoring of Hgb and tele
-cont ASA 81mg daily, Toprol XL
CAD: severe, multivessel
-plan as above
-statin to target LDL under 55
ICM, EF 25-30%
-severe
-GDMT: started Toprol XL 25mg bid and valsartan 40mg daily
-to add additional GDMT and diuretic once revascularization strategy is decided
Low flow, low gradient moderate aortic stenosis; mild aortic regurgitations
-cath shows mean grad 7 mmHg, with KIMBERLY 1.6cm2
Mild/moderate MR and TR
Permanent AFIB:
-rate-controlled, monitor rates with addition of metoprolol
-CHADS2-VASC = 5.
-has declined OAC as OP per notes: he will consider eliquis going forward; currently on heparin drip
PAD with hx L AKA:
-on ASA, statin
-follows with Dr. Allison
DM2 on insulin:
-check hgbA1C
-management per primary team
HLD:
-statin
Physical Exam
Vital Signs/Labs
Vital Signs
Temp Pulse Resp BP Pulse Ox
97.7 F 92 16 116/73 96
09/03/25 07:46 09/03/25 08:27 09/03/25 07:46 09/03/25 08:27 09/03/25 08:24
09/02/25 09/03/25 09/04/25
06:59 06:59 06:59
Actual Weight 75.8 kg 75.5 kg
09/03/25 04:06
09/03/25 04:06
PT 15.6 Sec (11.4-14.6) H 09/01/25 15:30
INR 1.26 09/01/25 15:30
APTT 61.8 Sec (23.4-35.0) H 09/03/25 04:06
Magnesium 2.0 mg/dl (1.6-2.3) 09/03/25 04:06
Triglycerides 48 mg/dl (10-149) 09/02/25 04:04
LDL Cholesterol, Calc 18 mg/dl 09/02/25 04:04
VLDL Cholesterol, Calc 9 mg/dl (0-30) 09/02/25 04:04
HDL Cholesterol 56 mg/dl 09/02/25 04:04
09/01/25
15:27
Jkg-Q-Szdeztunxfl Pept 2830
LAB Results
09/01/25 09/01/25 09/02/25
15:27 21:50 04:04
Troponin I 2.730 H* 3.880 H* D 3.380 H*
Physical Exam
Constitutional: No acute distress and Comfortable
EENT: Moist mucous membranes
Cardiovascular: Rhythm/rate is irregular, JVD present and Systolic murmur present
Neuro/Psych: AO x 3
Data Reviewed
-
Date of Service: September 03, 2025
EKG: Other (Tele:A fib )
Labs: Labs Reviewed by me
[2025-09-03] MEDS: DIOVAN 40 MG PO (09:41)
[2025-09-03 12:15] LABS: Glucose - Point of Care 179 mg/dl (70-99)
[2025-09-03 12:36] LABS: APTT 100.2 Sec (23.4-35.0)
[2025-09-03 13:14] LABS: Glucose - Point of Care 190 mg/dl (70-99)
[2025-09-03] MEDS: NOVOLOG FLEXPEN-LOW RESISTANCE 1 UNITS SC (13:14)
--- NOTE | 2025-09-03 13:26 | PTCARENOTE ---
Patient received at change of shift resting in the bed. Heparin gtt infusing at 1300units/hr. Right radial, brachial, and femoral sites C/D/I, surrounding area soft to palpation. Radial pulse palpable. Pedal pulse obtainable with doppler. Patient
reports mild chronic low back pain, acceptable at this time. Right radial site tender to palpation but no evidence of bleeding or ecchymosis noted. Patient hesitant to start new medications, metoprolol and valsartan, refused to take them until he
spoke with cardiology. Cardiology and hospitalist in to see patient. Patient agreeable to take valsartan. Patient also requested that his diet be changed, states he does not follow any dietary restrictions at home, per hospitalist OK to be on a
regular diet. Afib on telemetry. Patient weaned to room air, pulse ox 94-96%. Plan of care discussed. Care ongoing
[2025-09-03 16:07] LABS: Glucose - Point of Care 199 mg/dl (70-99)
[2025-09-03] MEDS: NOVOLOG FLEXPEN-LOW RESISTANCE 300 UNITS SC (16:19)
[2025-09-03] MEDS: LIPITOR 40 MG PO (17:15)
[2025-09-03] MEDS: PROTONIX IV 40 MG IV (17:40)
[2025-09-03] MEDS: HEPARIN 25000 UNITS/250 ML IV (17:40)
[2025-09-03] MEDS: NSS (PRESERVATIVE FREE) 10 ML IV (17:40)
[2025-09-03 18:39] LABS: APTT 135.8 Sec (23.4-35.0)
[2025-09-03] MEDS: TOPROL XL 25 MG PO (20:07)
[2025-09-03] MEDS: LANTUS 0.08 UNITS SC (20:09)
[2025-09-03 22:05] LABS: Glucose - Point of Care 185 mg/dl (70-99)
[2025-09-04] VITALS (7 sets, daily range): BP systolic 90–126; BP diastolic 59–77; BMI 26.2
[2025-09-04] MEDS: MORPHINE SULFATE 2 MG IV (00:25)
[2025-09-04 01:07] LABS: APTT 125.4 Sec (23.4-35.0)
--- NOTE | 2025-09-04 02:05 | PTCARENOTE ---
Assumed care at 1900. Patient alert and oriented x3. Patient remains in controlled afib one tele. Patient denies any chest pain or shortness of breath. Patient remains on 2L via nasal cannula. Patient reports chronic right shoulder pain at times.
Heparin gtt infusing as ordered. External urinary pouch in place. Patient sleeping between care. Care clustered. Patient educated regarding plan of care. Call kiser and personal belongings within reach.
[2025-09-04 05:18] LABS: Hematocrit 32.8 % (39.0-52.0); Hemoglobin 11.3 g/dL (13.0-18.0); Mean Corp Hgb Conc. 34.5 g/dL (33.0-37.0); Mean Corpuscular Volume 103.1 fL (80.0-94.0); Platelet Count 310 10^3/uL (130-400); Red Cell Dist. Width 13.2 % (11.5-14.5)
[2025-09-04 05:42] LABS: Blood Urea Nitrogen 19 mg/dl (9-20); Calcium 8.7 mg/dl (8.4-10.2); Carbon Dioxide 26 mmol/L (22-30); Chloride 106 mmol/L (98-107); Estimated Creatinine Clearance 76 ml/min; Glucose 121 mg/dl (70-99); Magnesium 2.1 mg/dl (1.6-2.3); Potassium 4.3 mmol/L (3.5-5.1); Sodium 136 mmol/L (135-145); eGFR > 60.00
--- NOTE | 2025-09-04 07:20 | W.PN.HOSP.TC ---
Today's Communication/Plan
-
see a/p
Assessment / Plan
Assessment / Plan
Physical Exam
General: No pallor, cyanosis, or jaundice.
HEENT: Throat clear. PERRLA Normocephalic atraumatic
NECK: Supple. No JVD Carotid Bruits
RESPIRATORY: Lungs clear to auscultation. No crackles wheezes stridor, Stable respiratory status on room air
CVS: S1, S2 normal. RRR. No murmur, rub or gallop.
ABDOMEN: Soft, non-tender. No distension. BS+/normal.
EXTREMITIES: Lt AKA pitting edema RLE +2
ACCOUNT UNDERWRITER: AOx3 conversant coherent
IMPRESSION:
84M permanent AFIB IDDM HLD PAD L AKA p/w progressive exertional dyspnea following episodes of left-sided chest discomfort/pain/radiations to Lt arm that started over the weekend. Initial discomfort woke him from sleep, episodes lasted for minutes
at a time. Pain since resolved, however patient noted progressive exertional dyspnea, days following onset chest pain symptoms, prompting ED evaluation. Troponin 2.730. Overall presentation/history concerning for missed TX/NSTEMI.
PLAN:
#NSTEMI, multivessel Dz
#Aortic Stenosis
#PAD L AKA
#HLD
#permanent afib (declined AC)
#Acute Hypoxia/Exertional Dyspnea
IVU admit
Troponin trended to peak 3.880
Cardio eval appreciated cath performed 09/02 noted multivessel dz mod , LDL goal <55
CTS eval appreciated
hep gtt, asa, statin, BB, Valsartan
ECHO appreciated EF 25-30% severe mild/mod MR TR
O2 prn
Daily Wt I/O
revascularization planning
#DM
A1c 8.9
Insulin sliding scale
Lantus reduced 8U QPM initially reduced dose d/t npo for cath, reduced dose was continued as sugars remained well controlled on diabetic diet, patient however requested change to regular diet.
Lantus increased back to home dose 16U QPM, continue
monitor and titrate insulin regimen as necessary
Regular Diet per patient's request
PT/OT SNF rehab (patient however wants to go home)
DVT ppx Hep gtt
Full Code
I spent a total of 40 minutes with the patient or on the floor. More than 50% of this time involved counseling and coordination of care.
Anticipated Discharge: > 48 hours
Subjective/Interval History
-
Date of Service: September 04, 2025
not acute distress, resting comfortably in bed. Denies new acute issues.
Objective Data
-
Labs:
Laboratory Results
09/04/25 09/04/25 09/04/25
00:41 05:03 07:15
WBC 6.9
Hgb 11.3 L
Hct 32.8 L
Plt Count 310
APTT 125.4 H Pending
Sodium 136
Potassium 4.3
Chloride 106
Carbon Dioxide 26
BUN 19
Creatinine 0.7
Glucose 121 H
Calcium 8.7
Vital Signs:
Vital Signs
Temp Pulse Resp BP Pulse Ox
98.3 F 72 18 95/63 94
09/04/25 04:55 09/04/25 05:00 09/03/25 22:05 09/04/25 04:57 09/04/25 04:55
I&O
09/03/25 09/04/25 09/05/25
06:59 06:59 06:59
Intake Total 480 / 480 156 / 156
Output Total 1350 / 1350 1050 / 1050
Balance -870 / -870 -894 / -894
[2025-09-04 07:41] LABS: Glucose - Point of Care 126 mg/dl (70-99)
[2025-09-04] MEDS: NOVOLOG FLEXPEN-LOW RESISTANCE SC (07:44)
[2025-09-04] MEDS: LOW STRENGTH ASPIRIN 81 MG PO (08:00)
[2025-09-04] MEDS: FLOMAX 0.4 MG PO (08:00)
[2025-09-04] MEDS: DIOVAN 40 MG PO (08:00)
[2025-09-04] MEDS: TOPROL XL 25 MG PO ×2 (08:00→20:20)
[2025-09-04] MEDS: PROTONIX 40 MG PO (08:00)
[2025-09-04 08:03] LABS: APTT 131.1 Sec (23.4-35.0)
--- NOTE | 2025-09-04 08:31 | W.PN.CD ---
Today's Communication / Plan
-
ASA, heparin drip
Impression / Plan
-
NSTEMI:
-threat to life
-currently CP free
-revascularization strategy is being discussed between PCI and CABG--likely will be PCI
-good anatomic bypass graft targets. However, he has severe PVD and is clearly high risk for open heart surgery. CABG would ideally be performed with POLLARD-LAD and additional conduits to the diagonal, OM, ramus, and RPL +/- RPDA.
Percutaneous options are more limited, and the most reasonable strategy would be initial PCI of the mid-LAD, which may require atherectomy. Although comprising large territories, the LCx and Ramus are heavily calcified and diseased back to their
ostia, and revascularization of these branches would require complex plaque modification with stents back to the LM trifurcation, a high risk procedure that may be of limited benefit beyond LAD revascularization and optimal medical therapy.
-continue heparin drip with monitoring of Hgb and tele
-cont ASA 81mg daily, Toprol XL
CAD: severe, multivessel
-plan as above
-statin to target LDL under 55
ICM, EF 25-30%
-severe
-GDMT: started Toprol XL 25mg bid and valsartan 40mg daily
-to add additional GDMT and diuretic once revascularization strategy is decided
Low flow, low gradient moderate aortic stenosis; mild aortic regurgitations
-cath shows mean grad 7 mmHg, with KIMBERLY 1.6cm2
Mild/moderate MR and TR
Permanent AFIB:
-rate-controlled, monitor rates with addition of metoprolol
-CHADS2-VASC = 5.
-has declined OAC as OP per notes: he will consider eliquis going forward; currently on heparin drip
PAD with hx L AKA:
-on ASA, statin
-follows with Dr. Allison
DM2 on insulin:
-check hgbA1C
-management per primary team
HLD:
-statin
Physical Exam
Vital Signs/Labs
Vital Signs
Temp Pulse Resp BP Pulse Ox
98.0 F 88 20 106/64 95
09/04/25 07:31 09/04/25 07:31 09/04/25 07:31 09/04/25 07:31 09/04/25 07:31
09/03/25 09/04/25 09/05/25
06:59 06:59 06:59
Actual Weight 75.5 kg 75.8 kg
09/04/25 05:03
09/04/25 05:03
PT 15.6 Sec (11.4-14.6) H 09/01/25 15:30
INR 1.26 09/01/25 15:30
APTT 131.1 Sec (23.4-35.0) H 09/04/25 07:40
Magnesium 2.1 mg/dl (1.6-2.3) 09/04/25 05:03
Triglycerides 48 mg/dl (10-149) 09/02/25 04:04
LDL Cholesterol, Calc 18 mg/dl 09/02/25 04:04
VLDL Cholesterol, Calc 9 mg/dl (0-30) 09/02/25 04:04
HDL Cholesterol 56 mg/dl 09/02/25 04:04
09/01/25
15:27
Syb-L-Qxrylctgnkv Pept 2830
LAB Results
09/01/25 09/01/25 09/02/25
15:27 21:50 04:04
Troponin I 2.730 H* 3.880 H* D 3.380 H*
Physical Exam
Constitutional: No acute distress and Comfortable
EENT: Moist mucous membranes
Cardiovascular: Pedal edema is absent, Rhythm/rate is irregular, JVD present and Systolic murmur present
Respiratory: Respiratory effort normal and Lungs clear to auscul.
Neuro/Psych: AO x 3
Data Reviewed
-
Date of Service: September 04, 2025
EKG: Other (Tele: A fib 80s)
Labs: Labs Reviewed by me
--- NOTE | 2025-09-04 09:07 | PTCARENOTE ---
Patient received at change of shift resting in the bed. Heparin gtt infusing as ordered. Right brachial, radial, and femoral sites C/D/I, no evidence of hematoma, no ecchymosis noted. Radial pulse palpable. Right pedal pulse obtainable with doppler.
The patient endorses chronic back and shoulder pain but did not request any PRN pain medication, patient adjusted in the bed to aid in comfort. The patient continues to endorse tenderness at his right radial site which is C/D/I, no ecchymosis or
hematoma noted. The patient was agitated regarding changes in medication including valsartan and metoprolol, discussed at length the purpose of the medications, cardiology also in to speak with the patient regarding the plan of care and his current
medications. The patient also reported feeling agitated, stating that he doesn't like to be in the hospital and grows more agitated the longer he is here. Provided emotional support and discussed with patient the plan of care.The patient also
reported some discomfort over his sacral area. A damp sacral foam was removed, area cleansed, and barrier ointment applied as the patient stated it felt 'raw down there'. Air cushion provided for when the patient is out of bed. Discussed with
patient adding a static air overlay or swapping his bed which the patient will think about as he doesn't want to be more uncomfortable and worries he will not like the other options. Call kiser within reach. Care ongoing.
[2025-09-04 12:47] LABS: Glucose - Point of Care 177 mg/dl (70-99)
[2025-09-04] MEDS: NOVOLOG FLEXPEN-LOW RESISTANCE 1 UNITS SC (12:47)
--- NOTE | 2025-09-04 14:38 | PTCARENOTE ---
Patient presently declining to get OOB today, stating that he does not feel up to it. Discussed risk of pressure injuries. Patient requesting barrier ointment for his sacrum and bilateral buttocks which was applied. Patient also agreeable to Q2
turns at this time to aid in pressure injury prevention.
[2025-09-04 15:17] LABS: APTT 53.1 Sec (23.4-35.0)
[2025-09-04 16:25] LABS: Glucose - Point of Care 212 mg/dl (70-99)
[2025-09-04] MEDS: NOVOLOG FLEXPEN-LOW RESISTANCE 2 UNITS SC (16:25)
[2025-09-04] MEDS: LIPITOR 40 MG PO (17:41)
[2025-09-04] MEDS: HEPARIN 25000 UNITS/250 ML IV (20:18)
[2025-09-04] MEDS: LANTUS 0.08 UNITS SC (20:20)
[2025-09-04 20:25] LABS: Glucose - Point of Care 260 mg/dl (70-99)
[2025-09-04] MEDS: DULCOLAX 10 MG RECTAL (21:04)
--- NOTE | 2025-09-04 21:17 | PTCARENOTE ---
Pt rec'd at change of shift in bed. afib on telemetry ,controlled. R/A sat 93 %. Pt with c/o no BM since . Medicated with Dulcolax supp. results pending.
[2025-09-04 22:02] LABS: Glucose - Point of Care 291 mg/dl (70-99)
[2025-09-04 22:23] LABS: APTT 74.1 Sec (23.4-35.0)
--- NOTE | 2025-09-04 22:47 | PTCARENOTE ---
Pt passed a moderate hard formed bm after getting Dulcolax. Now c/o pain right shoulder stating he thinks he has a pinched nerve because it runs down right arm and goes little numb. House Dip Guider [employer] contacted after pt requested Lidoderm patch.
[2025-09-04] MEDS: LIDOCAINE 4% PATCH 1 PATCH TOPICAL (23:03)
[2025-09-05] VITALS (9 sets, daily range): BP systolic 95–107; BP diastolic 61–77; PULSE 81; O2SAT 91; BMI 26.2
[2025-09-05 05:02] LABS: Hematocrit 32.6 % (39.0-52.0); Hemoglobin 11.5 g/dL (13.0-18.0); Mean Corp Hgb Conc. 35.3 g/dL (33.0-37.0); Mean Corpuscular Volume 103.5 fL (80.0-94.0); Platelet Count 298 10^3/uL (130-400); Red Cell Dist. Width 13.1 % (11.5-14.5)
[2025-09-05 05:13] LABS: Blood Urea Nitrogen 17 mg/dl (9-20); Calcium 8.7 mg/dl (8.4-10.2); Carbon Dioxide 26 mmol/L (22-30); Chloride 107 mmol/L (98-107); Estimated Creatinine Clearance 76 ml/min; Glucose 141 mg/dl (70-99); Magnesium 2.0 mg/dl (1.6-2.3); Potassium 4.2 mmol/L (3.5-5.1); Sodium 136 mmol/L (135-145); eGFR > 60.00
[2025-09-05 05:14] LABS: APTT 88.0 Sec (23.4-35.0)
--- NOTE | 2025-09-05 05:56 | PTCARENOTE ---
Pt reports sleeping well after getting Lidoderm patch placed to right shoulder
--- NOTE | 2025-09-05 06:33 | PTCARENOTE ---
Unable to obtain bed weight. Bed scale reads 3.1 lbs won't register accurately.
[2025-09-05 07:50] LABS: Glucose - Point of Care 122 mg/dl (70-99)
[2025-09-05] MEDS: NOVOLOG FLEXPEN-LOW RESISTANCE SC (08:07)
--- NOTE | 2025-09-05 08:11 | W.PN.CD ---
Today's Communication / Plan
-
PCI tomorrow
NPO@[place]
Plavix load
Impression / Plan
-
NSTEMI:
-threat to life
-currently CP free
-complex multi vessel disease with good anatomic surgical targets and poor PCI targets other than the focal mid-LAD. Unfortunately he is extreme risk for surgery. Discussed with CT surgery, patient, and family. Will proceed with LAD PCI.
Patient does not want bailout open heart surgery, but does consent to non-surgical management of complications (pericardiocentesis, ACLS).
-cont ASA 81mg daily, Toprol XL
-load with Plavix 600 mg today
-post op will transition to PO Eliquis for triple therapy x 1 week, followed Plavix/Eliquis for at least 6 months
CAD: severe, multivessel
-plan as above
-statin to target LDL under 55
ICM, EF 25-30%
-severe
-GDMT: cont. Toprol XL 25mg bid and valsartan 40mg daily; further titration of GDMT post-PCI and as outpatient
-to add additional GDMT and diuretic once revascularization strategy is decided
Low flow, low gradient moderate aortic stenosis; mild aortic regurgitations
-cath shows mean grad 7 mmHg, with KIMBERLY 1.6cm2
-will continue to monitor as outpatient
Mild/moderate MR and TR
Permanent AFIB:
-rate-controlled, monitor rates with addition of metoprolol
-CHADS2-VASC = 5.
-willing to continue AC at this point, has previously refused
PAD with hx L AKA:
-on ASA, statin
-follows with Dr. Allison
DM2 on insulin:
-check hgbA1C
-management per primary team
HLD:
-statin
Physical Exam
Vital Signs/Labs
Vital Signs
Temp Pulse Resp BP Pulse Ox
36.5 C 74 18 103/63 95
09/05/25 07:12 09/05/25 05:00 09/05/25 07:12 09/05/25 04:33 09/05/25 07:12
09/04/25 09/05/25 09/06/25
06:59 06:59 06:59
Actual Weight 75.8 kg
09/05/25 04:39
09/05/25 04:39
PT 15.6 Sec (11.4-14.6) H 09/01/25 15:30
INR 1.26 09/01/25 15:30
APTT 88.0 Sec (23.4-35.0) H 09/05/25 04:39
Magnesium 2.0 mg/dl (1.6-2.3) 09/05/25 04:39
Triglycerides 48 mg/dl (10-149) 09/02/25 04:04
LDL Cholesterol, Calc 18 mg/dl 09/02/25 04:04
VLDL Cholesterol, Calc 9 mg/dl (0-30) 09/02/25 04:04
HDL Cholesterol 56 mg/dl 09/02/25 04:04
09/01/25
15:27
Juw-J-Qfjiygusiti Pept 2830
Physical Exam
Constitutional: Comfortable
Cardiovascular: Rhythm/rate is irregular
Respiratory: Respiratory effort normal
Neuro/Psych: AO x 3
Data Reviewed
-
Date of Service: September 05, 2025
Medical Decision Making: Reviewed Test Results
EKG: Tracing Personally Visualized and interpreted
Labs: Labs Reviewed by me
[2025-09-05] MEDS: FLOMAX 0.4 MG PO (08:44)
[2025-09-05] MEDS: TOPROL XL 25 MG PO ×2 (08:44→19:56)
[2025-09-05] MEDS: REMOVE LIDOCAINE PATCH 1 PATCH REMOVE (08:44)
[2025-09-05] MEDS: DIOVAN 40 MG PO (08:44)
[2025-09-05] MEDS: LOW STRENGTH ASPIRIN 81 MG PO (08:44)
[2025-09-05] MEDS: PROTONIX 40 MG PO (08:44)
[2025-09-05] MEDS: PLAVIX 600 MG PO (08:44)
--- NOTE | 2025-09-05 09:00 | PTCARENOTE ---
PT AOx3 w/o complaints of pain; afib on monitor; RA clear lung sounds; GI BM 09/05; purewick; PIX cdi; see worklist for detailed assessmnet; High risk PCI 09/06
--- NOTE | 2025-09-05 10:42 | CM ---
Addendum entered by Mariya Mendoza 09/05/25 16:01:
Met with Mr. Manzo to review the recommendation of SNF/Rehab. Gave him the SNF list to review for options. He will review and let me know hi decision. He will need to pre-cert with his insurance for SNF/Rehab.
Original Note:
Reviewed chart. Met with Mr. Manzo to review discharge plans. He states he is feeling well and is going for a PCI tomorrow. Prior to admission he resides with his spouse in a spilt level home. He has three steps to get to the living room and
seven steps to get to bedroom/full bathroom. He has a powder room on the first floor. Prior to admission he ambulates with the walker if he needs to carry something. He uses his crutches or single point cane to go up and down the steps. He has has
VNA in the past, He went to [facility] for his prosthesis. He has a prothesis, single point cane, walker crutches, wheelchair and transport chair. His spouse has a fx. hip that would be a high risk to repair. She has 24 x 7 home
care for her. He is paying privately for these services. He has a prescription plan and uses [facility]. Medical work-up in progress. The discharge plan is to return home home with his spouse and VNA Services if indicated when medically
stable.
[2025-09-05 11:52] LABS: Glucose - Point of Care 175 mg/dl (70-99)
--- NOTE | 2025-09-05 13:00 | PTCARENOTE ---
no change from previous assessment
[2025-09-05] MEDS: NOVOLOG FLEXPEN-LOW RESISTANCE 300 UNITS SC ×2 (13:14→17:25)
--- NOTE | 2025-09-05 15:07 | W.PN.HOSP.TC ---
Today's Communication/Plan
-
LHC tomorrow, NPO at [place]
cont Hep ggt, ASA, plavix load, BB
Assessment / Plan
Assessment / Plan
Physical Exam
General: No pallor, cyanosis, or jaundice.
HEENT: Throat clear. PERRLA Normocephalic atraumatic
NECK: Supple. No JVD Carotid Bruits
RESPIRATORY: Lungs clear to auscultation. No crackles wheezes stridor, Stable respiratory status on room air
CVS: S1, S2 normal. RRR. No murmur, rub or gallop.
ABDOMEN: Soft, non-tender. No distension. BS+/normal.
EXTREMITIES: Lt AKA pitting edema RLE +2
SENIOR ESCROW OFFICER: AOx3 conversant coherent
IMPRESSION:
84M permanent AFIB IDDM HLD PAD L AKA p/w progressive exertional dyspnea following episodes of left-sided chest discomfort/pain/radiations to Lt arm that started over the weekend. Initial discomfort woke him from sleep, episodes lasted for minutes
at a time. Pain since resolved, however patient noted progressive exertional dyspnea, days following onset chest pain symptoms, prompting ED evaluation. Troponin 2.730. Overall presentation/history concerning for missed PA/NSTEMI.
PLAN:
#NSTEMI, multivessel Dz
#Aortic Stenosis
#PAD L AKA
#HLD
#permanent afib (declined AC in the past - now agreed
#Acute Hypoxia/Exertional Dyspnea
IVU admit
Troponin trended to peak 3.880
Cardio eval appreciated cath performed 09/02 noted multivessel dz mod , LDL goal <55
CTS eval appreciated
hep gtt, asa,plavix, statin, BB, Valsartan
ECHO appreciated EF 25-30% severe mild/mod MR TR
O2 prn
Daily Wt I/O
revascularization planning - tomorrow; NPO at [place]
post procedure will transition to PO Eliquis for triple therapy x 1 week, followed Plavix/Eliquis for at least 6 months
Ischemic cardiomyopathy
#HFrEF
�EF 25-30%
- cont. Toprol XL 25mg bid and valsartan 40mg daily; further titration of GDMT post-PCI and as outpatient
#DM
A1c 8.9
Insulin sliding scale
Lantus reduced 8U QPM initially reduced dose d/t npo for cath, reduced dose was continued as sugars remained well controlled on diabetic diet, patient however requested change to regular diet.
Lantus increased back to home dose 16U QPM, continue
monitor and titrate insulin regimen as necessary
Regular Diet per patient's request
PAD with hx L AKA:
-on ASA, statin
-F/u Dr. Allison outpatient
Afib, permanent
-rate control
-AC
-BB
PT/OT SNF rehab (patient however wants to go home)
DVT ppx Hep gtt
Full Code
Total time spent on today's encounter was 51 minutes which included time spent in counseling the patient/family regarding diagnosis and treatment plan as listed above, goals of care, and symptom management. Case was discussed with nursing staff,
specialists, and care coordinators/case management. All labs and imaging personally reviewed by me. Remainder the time spent in detailed review of previous records, lab data, imaging, and other medical provider documentation.
Anticipated Discharge: 24 - 48 hours
Subjective/Interval History
-
Date of Service: September 05, 2025
No acute events overnight
Objective Data
-
Labs:
Laboratory Results
09/05/25
04:39
WBC 6.6
Hgb 11.5 L
Hct 32.6 L
Plt Count 298
APTT 88.0 H
Sodium 136
Potassium 4.2
Chloride 107
Carbon Dioxide 26
BUN 17
Creatinine 0.7
Glucose 141 H
Calcium 8.7
Vital Signs:
Vital Signs
Temp Pulse Resp BP Pulse Ox
98.4 F 74 17 103/63 92
09/05/25 11:19 09/05/25 05:00 09/05/25 11:19 09/05/25 04:33 09/05/25 11:19
I&O
09/04/25 09/05/25 09/06/25
06:59 06:59 06:59
Intake Total 156 / 156
Output Total 1050 / 1050 2400 / 2400 600 / 600
Balance -894 / -894 -2400 / -2400 -600 / -600
Review of Systems
-
All other systems: Reviewed and negative
EENT: Reports No Symptoms Reported
Respiratory: Reports No Symptoms
Cardiac: Reports No Symptoms
Abdomen/GI: Reports No Symptoms
Genitourinary: Reports Incontinence and Difficulty Voiding
Musculoskeletal: Reports Joint Pain
Physical Exam
-
General: Well Developed
HEENT: Normocephalic
Respiratory: Clear to Auscultation
Cardiac: Regular Rhythm
GI: Soft, Nontender and Nondistended
Musculoskeletal: No Clubbing and Edema, Left Upper Extrem (Left above-knee amputation dressed covered with Ismael wrap/inspected by vascular earlier today stable)
Neuro: Awake
Psych: Calm
Data Reviewed
-
Diagnostic Radiology: Discussed with Patient
Labs: Labs Reviewed by me
[2025-09-05 16:20] LABS: Glucose - Point of Care 249 mg/dl (70-99)
[2025-09-05] MEDS: LANTUS 0.08 UNITS SC (17:25)
[2025-09-05] MEDS: LIPITOR 40 MG PO (17:28)
--- NOTE | 2025-09-05 19:26 | PTCARENOTE ---
no change from previous assessment
[2025-09-05] MEDS: TYLENOL 1000 MG PO (19:56)
[2025-09-05 22:31] LABS: Glucose - Point of Care 223 mg/dl (70-99)
[2025-09-05] MEDS: LIDOCAINE 4% PATCH TOPICAL (23:43)
[2025-09-06] VITALS (22 sets, daily range): BP systolic 74–137; BP diastolic 48–108; BMI 25.3
[2025-09-06] MEDS: HEPARIN 25000 UNITS/250 ML IV ×2 (00:35→20:08)
[2025-09-06] MEDS: TYLENOL 1000 MG PO (04:55)
[2025-09-06 05:01] LABS: Hematocrit 33.9 % (39.0-52.0); Hemoglobin 11.5 g/dL (13.0-18.0); Mean Corp Hgb Conc. 33.9 g/dL (33.0-37.0); Mean Corpuscular Volume 103.0 fL (80.0-94.0); Platelet Count 288 10^3/uL (130-400); Red Cell Dist. Width 13.3 % (11.5-14.5)
[2025-09-06 05:12] LABS: APTT 49.2 Sec (23.4-35.0)
--- NOTE | 2025-09-06 05:12 | PTCARENOTE ---
Pt AFib on monitor, VSS. C/o chronic back pain. Heparin gtt per order. NPO after midnight.
[2025-09-06 05:22] LABS: Blood Urea Nitrogen 17 mg/dl (9-20); Calcium 8.7 mg/dl (8.4-10.2); Carbon Dioxide 28 mmol/L (22-30); Chloride 105 mmol/L (98-107); Estimated Creatinine Clearance 67 ml/min; Glucose 144 mg/dl (70-99); Magnesium 2.0 mg/dl (1.6-2.3); Potassium 4.4 mmol/L (3.5-5.1); Sodium 136 mmol/L (135-145); eGFR > 60.00
[2025-09-06] MEDS: PLAVIX 75 MG PO (07:02)
[2025-09-06] MEDS: LOW STRENGTH ASPIRIN 81 MG PO (07:02)
[2025-09-06 08:15] LABS: ACT-LR - POC 256 Seconds (116-155)
--- NOTE | 2025-09-06 08:22 | PN.CDI ---
CDI
- -
CDI:
Physician Documentation Request
Admit Date: 09/01/25 18:26
Dear Doctor Celine,
Please review the following and provide your response in the progress notes.
Clinical Indicators:
- Patient admit for NSTEMI
- 09/05 PN 'HFrEF...EF 25-30%'
- proBNP 2830
- No documentation of pmh CHF
- 09/01 CXR 'interstitial pulmonary edema pattern with small bilateral pleural effusions'
Please clarify which of the following accurately represents the acuity of the HFrEF
Acute HFrEF
Acute on chronic HFrEF
Chronic HFrEF
Other (please specify)
Use of terms such as suspected, likely, concern for, or probable (associated with a specific diagnosis that is being evaluated, monitored, or treated as if it exists) are acceptable and can be coded in the inpatient setting, when documented at the
time of discharge.
Thank you,
Doug Roth RN
CDI Specialist
Please use your independent medical judgment in providing your response.
[2025-09-06 08:25] LABS: ACT-LR - POC 274 Seconds (116-155)
[2025-09-06 08:36] LABS: ACT-LR - POC 308 Seconds (116-155)
[2025-09-06 09:01] LABS: ACT-LR - POC 287 Seconds (116-155)
[2025-09-06 09:20] LABS: ACT-LR - POC 313 Seconds (116-155)
--- NOTE | 2025-09-06 09:37 | ITS.CL.PN ---
[facility] - Procedure Note
Procedure
Procedure Note:
CARDIAC CATHETERIZATION REPORT
Date of Procedure: 09/06/2025
Referring: Dr. See Ramos MD, PhD
Indication: NSTEMI
PROCEDURE(S)
1. unsuccessful PCI to mid-LAD
ACCESS:
1. 6F left radial artery (aborted due to inability to fully advance sheath due to severe calcificaiton; closure: radial band)
1. 6F right common femoral artery (closure: manual hemostasis)
CATHETERS
1. 6F EBU4 guide
MODERATE SEDATION: 60 minutes of moderate sedation was utilized. An independent medical sales associate was present to assist with and help manage the patient's level of consciousness and physiologic status.
PROCEDURAL NARRATIVE
Cardiac surgery had evaluated the patient and deemed CABG to be of prohibitive risk. Complete percutaneous revascularization was felt to be of prohibitive complexity given the heavily calcified long segment disease in the LCx, Ramus, and RCA. Thus,
the decision was made to proceed with PCI of the mid-LAD, the presumed culprit lesion for the patient's presentation. During the prior diagnostic angiogram, right radial artery access was not possible due to calcification and the left femoral artery
has a prior endarterectomy with patch repair, significant scarring, and very poor visualization of the REFRIGERATOR CRATER with ultrasound. Given the patient's low EF and multivessel disease with low-normal cardiac index on prior RHC, we initially attempted left
radial access to leave open the possibility for mechanical support from the right femoral artery should the patient require it. Unfortunately, a 6F sheath was unable to advance through he left radial artery due to severe calcification. Thus, we
proceeded through right common femoral access understanding this to be the only acceptable interventional access point.
After obtaining ultrasound guided access, a 6F sheath was placed and an EBU4 guide catheter used to engage the LAD. Initial wiring with a Runthrough was unsuccessful. A Whisper wire with Turnpike LP microcatheter was next advanced and was similarly
unable to cross the lesion. To conserve contrast and improve lesion angiography, the Turnkpike was removed and a 6F Guideliner inserted with balloon tracking over a 2.0 mm balloon used to bring the Guideliner into the mid LAD. The turnpike was
reinserted over the Whisper wire, and further attempts were made to wire the lesion with the Whisper wire, a Fielder XT, a Ict Sales Representative 50, and a Ict Sales Representative 200, both with standard and PROPOSAL REP bends and with various degrees of microcatheter support. The wires were
able to engage a small septal branch at the lesion site but would not cross beyond. We attempted engaging this septal branch with the Turnpike and slowly retracting the Turnkpike iteratively with gentle wire exit of the Ict Sales Representative 200 to enter true lumen
just beyond to the septal branch. Unfortunately, this resulted in the wire entering the extra-plaque space and a small hematoma formed with luminal compression visualized on angiography. The patient was without angina and hemodynamically stable but
was developing significant orthopedic should pain due to positioning despite sedation. Consideration was given to placing a dual lumen microcatheter in the septal to attempt distal vessel wiring via side port wire exit. However, given procedural
time, radiation, patient discomfort, and concern about causing further dissection propagation and possible vessel compromise in a patient with reduced EF and limited options for mechanical support, we decided to abort further attempts. Final
angiography demonstrated mild lumen narrowing distal to the lesion where the wire had become extra-plaque and TIMI2 flow in the apical LAD (baseline flow was TIMI2 as well, but less so). The patient had no symptoms. There were mild stable ST changes
on telemetry, present from the start of the case. The groin sheath was sewn in place with plan to pull once ACT<200. A radial band placed on the left radial artery.
CONCLUSION: Unsuccessful PCI of the mid-LAD due to failure to cross the lesion despite antegrade wire escalation techniques with Guideliner and microcatheter support.
RECOMMENDATIONS
1. Radial band protocol. Pull groin sheath once ACT<200.
2. EKG now and tonight.
3. Resume heparin 6 hours after groin hemostasis
4. Narrow to Plavix/Eliquis tomorrow morning.
4. Medical management of NSTEMI and ischemic cardiomyopathy. Can initiate dapagliflozin tomorrow morning. Further GDMT titration as outpatient.
5. If patient has medication refractory symptoms, consider referral to dedicated PROPOSAL REP coal tower operator for reattempt PCI. Though lesion appearance suggests presence of a microchannel amenable to antegrade wiring / AWE, if similar difficulties present during
reattempt PCI, ADR may be a viable approach.
Copy to: Dr. Jason Valenzuela MD, PhD (last code striper); Dr. Aga Fallon DO (PCP)
Signed: Jason Valenzuela MD, PhD
[2025-09-06] MEDS: NOVOLOG FLEXPEN-LOW RESISTANCE SC ×2 (10:08→12:59)
[2025-09-06] MEDS: DIOVAN 40 MG PO (10:20)
[2025-09-06] MEDS: FLOMAX 0.4 MG PO (10:20)
[2025-09-06] MEDS: PROTONIX 40 MG PO (10:20)
[2025-09-06] MEDS: TOPROL XL 25 MG PO (10:20)
[2025-09-06] MEDS: REMOVE LIDOCAINE PATCH 1 PATCH REMOVE (10:21)
[2025-09-06] MEDS: ULTRAM 50 MG PO (10:43)
[2025-09-06 10:44] LABS: ACT-LR - POC 245 Seconds (116-155)
--- NOTE | 2025-09-06 10:47 | PTCARENOTE ---
patient returned from offset label rewinder with left radial R band and right femoral artery sheath. the right fem sheath, Kasia was zeroed, site has some blood on dressing and distal pulse by Doppler only. left radial artery R band, hand is dusky with an o2 sat
98%, distal pulse palpable. patient has chronic left shoulder pain, which offset label rewinder called over to place a lidocaine patch omn left shoulder and lower back has pain. TT Gail Hollins, she ordered ultram, given as ordered. check ACT at 1030 245. monitor
shows Afib confirmed with EKG post procedure. VSS.
[2025-09-06 11:40] LABS: ACT-LR - POC 203 Seconds (116-155)
--- NOTE | 2025-09-06 11:49 | PTCARENOTE ---
ACT 203, oozing not4ed on dressing of right groin.
[2025-09-06 12:06] LABS: Glucose - Point of Care 136 mg/dl (70-99)
[2025-09-06 12:37] LABS: ACT-LR - POC 168 Seconds (116-155)
--- NOTE | 2025-09-06 12:58 | PTCARENOTE ---
ACT 168
--- NOTE | 2025-09-06 14:25 | CM ---
Reviewed chart. Met with Mr. Manzo to review discharge plans. We reviewed SNF/Rehab. He wanted to know if [facility] at [place] would be any option. Reviewed with him the role insurance play with placement. Telephone call to [facility].
[facility] to make the referral. Sent referral. Also rent referrals to [facility] and [facility] to check on SNF bed. He will need pre-cert with his insurance for any rehab. He has many questions for the medical montalvo about his
options, since the PCI could not be done. We also reviewed Home Care as an option. He also has questions about his shoulder pain. He would like to review options with his family. Medical work-up in progress. The discharge plan is to go to some
level of rehab. if bed available, approved by insurance and he is agreeable.
Received consult to check on co-pay for Fraxiga 10 mg po daily. Telephone call to his insurance to check on his co-pay. He has only spent 850.00 on his $2000.00 out of pocket cost. So he would be responsible for 24 percent cost of the medication.
So his Farxiga for thirty day would be $144.46 and for ninety days his co-pay would be $401.30. Reviewed co-pay with him. He would have to start with his deductible again starting in the new year.
--- NOTE | 2025-09-06 14:31 | W.PN.HOSP.TC ---
Today's Communication/Plan
-
medical management for unsuccessful PCI
Assessment / Plan
Assessment / Plan
Physical Exam
General: No pallor, cyanosis, or jaundice.
HEENT: Throat clear. PERRLA Normocephalic atraumatic
NECK: Supple. No JVD Carotid Bruits
RESPIRATORY: Lungs clear to auscultation. No crackles wheezes stridor, Stable respiratory status on room air
CVS: S1, S2 normal. RRR. No murmur, rub or gallop.
ABDOMEN: Soft, non-tender. No distension. BS+/normal.
EXTREMITIES: Lt AKA pitting edema RLE +2
OFFSET PRINTING PRESSMEN: AOx3 conversant coherent
IMPRESSION:
84M permanent AFIB IDDM HLD PAD L AKA p/w progressive exertional dyspnea following episodes of left-sided chest discomfort/pain/radiations to Lt arm that started over the weekend. Initial discomfort woke him from sleep, episodes lasted for minutes
at a time. Pain since resolved, however patient noted progressive exertional dyspnea, days following onset chest pain symptoms, prompting ED evaluation. Troponin 2.730. Overall presentation/history concerning for missed WI/NSTEMI.
PLAN:
#NSTEMI, multivessel Dz
#Aortic Stenosis
#PAD L AKA
#HLD
#permanent afib (declined AC in the past - now agreed
#Acute Hypoxia/Exertional Dyspnea
IVU admit
Troponin trended to peak 3.880
Cardio eval appreciated cath performed 09/02 noted multivessel dz mod , LDL goal <55
CTS eval appreciated
hep gtt, asa,plavix, statin, BB, Valsartan
ECHO appreciated EF 25-30% severe mild/mod MR TR
O2 prn
Daily Wt I/O
revascularization planning - today -unsuccessful PCI
-Resume heparin 6 hours after groin hemostasis
-Resume heparin 6 hours after groin hemostasis
�SGLT2 inhibitor cost
Ischemic cardiomyopathy
#HFrEF
�EF 25-30%
- cont. Toprol XL 25mg bid and valsartan 40mg daily; further titration of GDMT post-PCI and as outpatient
#DM
A1c 8.9
Insulin sliding scale
Lantus reduced 8U QPM initially reduced dose d/t npo for cath, reduced dose was continued as sugars remained well controlled on diabetic diet, patient however requested change to regular diet.
Lantus increased back to home dose 16U QPM, continue
monitor and titrate insulin regimen as necessary
Regular Diet per patient's request
PAD with hx L AKA:
-on ASA, statin
-F/u Dr. Allison outpatient
Afib, permanent
-rate control
-AC
-BB
PT/OT SNF rehab (patient however wants to go home)
DVT ppx Hep gtt
Full Code
Anticipated Discharge: Within 24 hours
Subjective/Interval History
-
Date of Service: September 06, 2025
[employer] SAL[employer] CONSULTANT today during [facility]
Objective Data
-
Labs:
Laboratory Results
09/06/25 09/06/25 09/06/25
03:59 04:00 12:30
WBC 5.9
Hgb 11.5 L
Hct 33.9 L
Plt Count 288
APTT 49.2 H Pending
Sodium 136
Potassium 4.4
Chloride 105
Carbon Dioxide 28
BUN 17
Creatinine 0.8
Glucose 144 H
Calcium 8.7
Vital Signs:
Vital Signs
Temp Pulse Resp BP Pulse Ox
97.5 F 78 20 112/63 98
09/06/25 11:10 09/06/25 12:00 09/06/25 11:10 09/06/25 12:00 09/06/25 11:10
I&O
09/05/25 09/06/25 09/07/25
06:59 06:59 06:59
Intake Total 120 / 120
Output Total 2400 / 0 1999
Balance -2400 / -2400 -0 / -1879
Review of Systems
-
All other systems: Reviewed and negative
EENT: Reports No Symptoms Reported
Respiratory: Reports No Symptoms
Cardiac: Reports No Symptoms
Abdomen/GI: Reports No Symptoms
Genitourinary: Reports Incontinence and Difficulty Voiding
Musculoskeletal: Reports Joint Pain
Physical Exam
-
General: Well Developed
HEENT: Normocephalic
Respiratory: Clear to Auscultation
Cardiac: Regular Rhythm
GI: Soft, Nontender and Nondistended
Musculoskeletal: No Clubbing and Edema, Left Upper Extrem (Left above-knee amputation dressed covered with Ismael wrap/inspected by vascular earlier today stable)
Neuro: Awake
Psych: Calm
Data Reviewed
-
Diagnostic Radiology: Discussed with Patient
Labs: Labs Reviewed by me
[2025-09-06] MEDS: LIPITOR 40 MG PO (17:50)
[2025-09-06] MEDS: NOVOLOG FLEXPEN-LOW RESISTANCE 2 UNITS SC (17:55)
[2025-09-06] MEDS: LANTUS 0.08 UNITS SC (18:09)
[2025-09-06 18:16] LABS: Glucose - Point of Care 207 mg/dl (70-99)
[2025-09-06] MEDS: TOPROL XL PO (20:00)
[2025-09-06 20:11] LABS: Hematocrit 32.5 % (39.0-52.0); Hemoglobin 11.1 g/dL (13.0-18.0)
--- NOTE | 2025-09-06 20:46 | W.PN.UPDATE ---
Update Note
Progress Note Update
RN reports BP 82/62 72, BP 87/51 HR 77. Patient asymptomatic. will hold metoprolol.
Patient seen and evaluated. Oriented, QAWALANGIN, denies dizziness, lightheaded, conversant. reports he didn't eat or drink much today. Cath sites without any bleeding or hematoma, site soft to palpate. no bruises or hematoma noted. likely hypovolemic?
bolus NSS 250CC/hr BP 109/61, heart rate [address] Valenzuela aware of the above
BP 110/66 HR 76 in AM
[2025-09-06] MEDS: NSS 250 IV (21:33)
[2025-09-06] MEDS: LIDOCAINE 4% PATCH 1 PATCH TOPICAL (21:40)
[2025-09-06 22:14] LABS: Glucose - Point of Care 225 mg/dl (70-99)
--- NOTE | 2025-09-06 22:30 | PTCARENOTE ---
Patient with low BP (77/64 and 80/53) at change of shift, he denies any complaints. House provider made aware - ordered stat H&H that resulted at 11.1 and 32.5. Provider ordered 250 ml bolus to run over 1 hour. BP after bolus 109/61, heart rate
83. Plan of care discussed with patient and call kiser within reach.
[2025-09-07] VITALS (12 sets, daily range): BP systolic 91–122; BP diastolic 56–84; PULSE 77–95; O2SAT 91–95; BMI 25.6
[2025-09-07 03:07] LABS: Hematocrit 32.6 % (39.0-52.0); Hemoglobin 11.0 g/dL (13.0-18.0); Mean Corp Hgb Conc. 33.7 g/dL (33.0-37.0); Mean Corpuscular Volume 102.5 fL (80.0-94.0); Platelet Count 310 10^3/uL (130-400); Red Cell Dist. Width 13.3 % (11.5-14.5)
[2025-09-07 03:18] LABS: APTT 63.3 Sec (23.4-35.0)
[2025-09-07 03:25] LABS: Blood Urea Nitrogen 18 mg/dl (9-20); Calcium 8.8 mg/dl (8.4-10.2); Carbon Dioxide 27 mmol/L (22-30); Chloride 106 mmol/L (98-107); Estimated Creatinine Clearance 76 ml/min; Glucose 169 mg/dl (70-99); Magnesium 1.9 mg/dl (1.6-2.3); Potassium 4.5 mmol/L (3.5-5.1); Sodium 134 mmol/L (135-145); eGFR > 60.00
[2025-09-07] MEDS: NOVOLOG FLEXPEN-LOW RESISTANCE SC (08:37)
[2025-09-07] MEDS: LOW STRENGTH ASPIRIN 81 MG PO (08:37)
[2025-09-07] MEDS: PROTONIX 40 MG PO (08:37)
[2025-09-07] MEDS: PLAVIX 75 MG PO (08:37)
[2025-09-07] MEDS: FLOMAX 0.4 MG PO (08:37)
[2025-09-07] MEDS: TOPROL XL 25 MG PO (08:38)
[2025-09-07] MEDS: DIOVAN 40 MG PO (08:39)
[2025-09-07] MEDS: REMOVE LIDOCAINE PATCH 1 PATCH REMOVE (08:39)
[2025-09-07 08:50] LABS: Glucose - Point of Care 147 mg/dl (70-99)
[2025-09-07 10:10] LABS: APTT 135.6 Sec (23.4-35.0)
--- NOTE | 2025-09-07 11:48 | PTCARENOTE ---
Pt is AOx3, no complaints of pain or discomfort. Assist x1-2 OOB with prosthetic. Pt worked with PT today. Afib on tele monitor, VSS. Call kiser within reach.
[2025-09-07 11:53] LABS: Glucose - Point of Care 193 mg/dl (70-99)
--- NOTE | 2025-09-07 12:25 | W.PN.CD ---
Addendum entered and electronically signed by Franco Means DO 09/07/25 13:55:
Discussed further with patient. Patient is adamantly uninterested in surgery in any form.
We will proceed with medical management.
Continue clopidogrel.
Start rivaroxaban 15 mg PO daily.
Disposition planning in concert with PT/OT.
Original Note:
Today's Communication / Plan
-
MIDCAB vs. medical management of NSTEMI.
Start spironolactone 12.5 mg daily.
Start dapagliflozin 10 mg daily. Case management consult.
Valve management as an outpatient.
Therapeutic anticoagulation with either apixaban or rivaroxaban (benefit with CAD/PAD).
Impression / Plan
-
Impression/Plan: 84 y/o male with IDDM, HLD, PAD s/p left AKA, severe low flow, low gradient and atrial fibrillation admitted with NSTEMI.
#NSTEMI/CAD:
-Acute, threat to life.
-Complex multi vessel disease with good anatomic surgical targets and poor PCI targets other than the focal mid-LAD.
-Unfortunately he is extreme risk for surgery. PCI was unsuccessful yesterday, and patient is currently CP free.
-Continue ASA 81mg daily, metoprolol succinate 25 mg BID.
-Patient was loaded with clopidogrel. Hold clopidogrel and re-discuss revascularization options with CT surgery (MIDCAB) vs. conservative management as well as patient's preference.
-If we opt for conservative management, we will use therapeutic anticoagulation (he may benefit from rivaroxaban) and clopidogrel - no role for aspirin.
-Continue high dose, high potency statin. Goal LDL < 55.
#ICM
-Chronic, severe (LVEF 25-30%).
-LVEDP = 19 mmHg at 75.7 kg.
-GDMT as hemodynamics will tolerate:
-Diuretics:
-Beta epifanio: Metoprolol succinate 25mg bid
-ACEI/ARB/ARNi: Valsartan 40mg daily
-MRA: Start spironolactone 12.5 mg daily.
-SGLT2i: Start dapagliflozin 10 mg daily. Case management consult.
-ICD: Repeat TTE in 90 days. If LVEF remains < 35%, consider primary prevention ICD.
#Low flow, low gradient moderate aortic stenosis; mild aortic regurgitations
-Invasive mean gradient = 7 mmHg, with KIMBERLY 1.6cm2.
-Outpatient monitoring.
#Mild/moderate MR and TR
#Permanent AFIB:
-Chronic.
-Rate-control with metoprolol (previously not on anything, raising the possibility of occult conduction disease).
-CHADS2-VASC = 5.
-Has previously refused therapeutic anticoagulation, now willing to accept.
#PAD
-Chronic, hx L AKA.
-Continue statin. No role for aspirin with use of therapeutic anticoagulation.
-Follows with Dr. Allison.
#IDDM2
-check hgbA1C
-management per primary team
#HLD:
-statin
Subjective/Interval History:
Unsuccessful PCI of the LAD yesterday.
Intermittent hypotension overnight (BP's 77/64 mmHg, 80/53 mmHg).
Patient was previously more normotensive.
Weight is up 1 kg (74.2 <-- 73.2).
DATA:
Cardiac Catheterization, 09/02/2025:
CORONARY ANGIOGRAPHY
Dominance: right
LM: Large vessel with 30% mid body narrowing and excellent contrast reflux.
LAD: Large vessel giving rise to a moderate caliber branching diagonal. There is focal likely severe ostial stenosis of the diagonal. There is a focal, eccentric, calcified 90% stenosis in the mid-portion of the LAD.
Ramus: Large-caliber vessel with severe nodular calcification extending from the ostium to the midportion. There is relative sparing of the distal vessel.
LCx: Moderate caliber vessel giving rise to a small OM1, small OM 2, and moderate caliber LPL branch. There is severe nodular calcification extending from the ostial to mid vessel with relative sparing of the branch vessels.
RCA: Moderate caliber vessel giving rise to a totally occluded RPDA and subtotally occluded RPL system. There is diffuse moderate calcific disease throughout the vessel prior to the occluded distal vessels.
CONCLUSIONS
1. 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
2. Low-flow low-gradient moderate aortic valve stenosis.
2. Severe multivessel coronary artery disease as described.
TTE, 09/02/2025:
SUMMARY
1. Severely reduced LV systolic function. Estimated LVEF 25-30%. Severe hypokinesis of inferior and inferoseptal segments from base to apex.
2. Low flow, low gradient aortic stenosis: severe vs psuedo-severe in setting of depressed LVEF. The peak aortic valve gradient is 21.0 mmHg. The mean aortic valve gradient is 11.0 mmHg. The aortic valve area, calculated by the continuity equation,
is 0.7 cm². SVI 15. Mild aortic regurgitation seen.
3. Mild/moderate mitral valve regurgitation.
4. Mild/moderate tricuspid regurgitation. Estimated pulmonary artery pressure of 55 mmHg assuming a right atrial pressure of 15 mmHg. Moderate/severely elevated PASP.
5. Compared to 10/06/17: LVEF has declined from 55-60% to 25-30%, with new inferior wall motion abnormality. Low flow low gradient is new.
Cardiac Catheterization/PCI, 09/06/2025:
CONCLUSION: Unsuccessful PCI of the mid-LAD due to failure to cross the lesion despite antegrade wire escalation techniques with Guideliner and microcatheter support.
Physical Exam
Vital Signs/Labs
Vital Signs
Temp Pulse Resp BP Pulse Ox
36.3 C 74 18 91/61 96
09/07/25 11:17 09/07/25 12:00 09/07/25 11:17 09/07/25 11:48 09/07/25 11:17
09/06/25 09/07/25 09/08/25
11:59 11:59 11:59
Actual Weight 73.2 kg 74.2 kg
09/07/25 02:45
09/07/25 02:45
PT 15.6 Sec (11.4-14.6) H 09/01/25 15:30
INR 1.26 09/01/25 15:30
APTT 135.6 Sec (23.4-35.0) H 09/07/25 09:50
Magnesium 1.9 mg/dl (1.6-2.3) 09/07/25 02:45
Triglycerides 48 mg/dl (10-149) 09/02/25 04:04
LDL Cholesterol, Calc 18 mg/dl 09/02/25 04:04
VLDL Cholesterol, Calc 9 mg/dl (0-30) 09/02/25 04:04
HDL Cholesterol 56 mg/dl 09/02/25 04:04
09/01/25
15:27
Iup-E-Dpqzgdfagfw Pept 2830
Physical Exam
Constitutional: No acute distress and Comfortable
EENT: Anicteric and Moist mucous membranes
Cardiovascular: Pedal edema is absent, JVD pressure is normal, Rhythm/rate is irregular, S1S2 is normal and Murmur/rub/gallop absent
Respiratory: Respiratory effort normal, Lungs clear to auscul., Wheeze Absent, Crackles Absent and Rhonchi Absent
GI: Soft, Distention absent, Flat, Non tender and Normal bowel sounds
Neuro/Psych: AO x 3
Other: Cath Site (Right femoral access site is C/D/I.) and Other (Left leg is surgically absent above the knee.)
Data Reviewed
-
Date of Service: September 07, 2025
Medical Decision Making: Reviewed Test Results, Independent Historian Assessment and Test Interpretation
EKG: Tracing Personally Visualized and interpreted and Report Reviewed by me
Echo: Report Reviewed by me
X-Ray/CT/US/MRI/NUC/PET: Image Personally Visualized and interpreted and Report Reviewed by me
Medical Tests (PFT, Pathology etc): Image Personally Visualized and interpreted and Report Reviewed by me
Labs: Labs Reviewed by me
Old Records: Reviewed
[2025-09-07] MEDS: NOVOLOG FLEXPEN-LOW RESISTANCE 1 UNITS SC ×2 (12:49→16:38)
--- NOTE | 2025-09-07 15:39 | CM ---
Authorization obtained for transfer to [facility], 09/07 with NRD 09/12, Auth# [id number], IBD# [phone]
[2025-09-07] MEDS: FARXIGA 10 MG PO (15:50)
--- NOTE | 2025-09-07 16:25 | W.PN.HOSP.TC ---
Addendum entered and electronically signed by Pillo Berger MD 09/08/25 17:26:
[id number]
Addendum entered and electronically signed by Pillo Berger MD 09/08/25 16:52:
Chronic HFrEF
Original Note:
Today's Communication/Plan
-
lantus 8u qhs
Continue clopidogrel.
Start rivaroxaban 15 mg PO daily
Start spironolactone 12.5 mg daily
Start dapagliflozin 10 mg daily
rivaroxaban
Assessment / Plan
Assessment / Plan
Physical Exam
General: No pallor, cyanosis, or jaundice.
HEENT: Throat clear. PERRLA Normocephalic atraumatic
NECK: Supple. No JVD Carotid Bruits
RESPIRATORY: Lungs clear to auscultation. No crackles wheezes stridor, Stable respiratory status on room air
CVS: S1, S2 normal. RRR. No murmur, rub or gallop.
ABDOMEN: Soft, non-tender. No distension. BS+/normal.
EXTREMITIES: Lt AKA pitting edema RLE +2
SOCIALLY RESPONSIBLE INVESTMENT ADVISER: AOx3 conversant coherent
IMPRESSION:
84M permanent AFIB IDDM HLD PAD L AKA p/w progressive exertional dyspnea following episodes of left-sided chest discomfort/pain/radiations to Lt arm that started over the weekend. Initial discomfort woke him from sleep, episodes lasted for minutes
at a time. Pain since resolved, however patient noted progressive exertional dyspnea, days following onset chest pain symptoms, prompting ED evaluation. Troponin 2.730. Overall presentation/history concerning for missed GA/NSTEMI.
PLAN:
#NSTEMI, multivessel Dz
#Aortic Stenosis
#PAD L AKA
#HLD
#permanent afib (declined AC in the past - now agreed
#Acute Hypoxia/Exertional Dyspnea
IVU admit
Troponin trended to peak 3.880
Cardio eval appreciated cath performed 09/02 noted multivessel dz mod , LDL goal <55
CTS eval appreciated
hep gtt, asa,plavix, statin, BB, Valsartan
ECHO appreciated EF 25-30% severe mild/mod MR TR
O2 prn
Daily Wt I/O
revascularization planning - today -unsuccessful PCI
MIDCAB vs. medical management of NSTEMI.
Start spironolactone 12.5 mg daily.
Start dapagliflozin 10 mg daily.
rivaroxaban
Continue clopidogrel.
Start rivaroxaban 15 mg PO daily.
#Hyponatremia
-mild
-bmp outpt
Ischemic cardiomyopathy
#HFrEF
�EF 25-30%
- see plan above
-sgtl2i, aldactone, Toprol, Valsartan
#DM
A1c 8.9
Insulin sliding scale
Lantus reduced 8U QPM initially reduced dose d/t npo for cath, reduced dose was continued as sugars remained well controlled on diabetic diet, patient however requested change to regular diet.
Lantus changed to 8u qpm
monitor and titrate insulin regimen as necessary
Regular Diet per patient's request
PAD with hx L AKA:
-on ASA, statin
-F/u Dr. Allison outpatient
Afib, permanent
-rate control
-AC
-BB
PT/OT SNF rehab
Full Code
More than 30 minutes spent in discharge including
Final examination of the patient
Summarizing hospital stay
Instructions for continuing care to all relevant caregivers
Preparation of discharge records, prescriptions, and referral forms
Total time spent (in minutes): 37
Anticipated Discharge: Today
Subjective/Interval History
-
Date of Service: September 07, 2025
no acute events overnight
Objective Data
-
Labs:
Laboratory Results
09/07/25 09/07/25
09:50 17:30
APTT 135.6 H Pending
Vital Signs:
Vital Signs
Temp Pulse Resp BP Pulse Ox
97.4 F 82 18 95/57 93
09/07/25 14:57 09/07/25 15:00 09/07/25 14:57 09/07/25 14:59 09/07/25 14:57
I&O
09/06/25 09/07/25 09/08/25
06:59 06:59 06:59
Intake Total 120 / 120 574 / 574
Output Total 1999 1375 / 1375
Balance -1880 / -1880 -801 / -801
Review of Systems
-
All other systems: Reviewed and negative
EENT: Reports No Symptoms Reported
Respiratory: Reports No Symptoms
Cardiac: Reports No Symptoms
Abdomen/GI: Reports No Symptoms
Musculoskeletal: Reports Joint Pain
Physical Exam
-
General: Well Developed
HEENT: Normocephalic
Respiratory: Clear to Auscultation
Cardiac: Regular Rhythm
GI: Soft, Nontender and Nondistended
Musculoskeletal: No Clubbing and Edema, Left Upper Extrem (Left above-knee amputation dressed covered with Ismael wrap/inspected by vascular earlier today stable)
Neuro: Awake
Psych: Calm
Data Reviewed
-
Diagnostic Radiology: Discussed with Patient
Labs: Labs Reviewed by me
--- NOTE | 2025-09-07 16:32 | W.DS.TRANS ---
DC Summary - Editorial Intern
-
Discharge Instructions:
Sleep Apnea Risk Intermediate
Discharge Diagnosis/Procedures #NSTEMI, multivessel Dz
#Aortic Stenosis
#PAD L AKA
#HLD
#permanent afib (declined AC in the past - now
agreed
#Acute Hypoxia/Exertional Dyspnea
Diet Low Cholesterol,Diabetic, Carb Controlled
Driving Restrictions No driving for 24 hours
Blood Work f/u bmp and cbc in 3-5 days
Instructions:
Stand-Alone Forms: DC Instructions- Cath/EP Lab
Changes to Home Medications: Yes
Discharge Medications:
DC Medications w/original date entered in [employer]
tamsulosin 0.4 mg capsule 0.4 mg PO DAILY #30 caps 05/30/22
Centrum Men 09/01/25
insulin aspart U-100 100 unit/mL (3 mL) subcutaneous pen (Novolog FlexPen U-100 Insulin aspart) 0 unit SC MEALS 09/01/25
Insulin Glargine Lantus [Lantus] 8 units As Directed mls/hr SC QPM 09/07/25
atorvastatin 40 mg tablet 40 mg PO QPM #0 tabs 09/07/25
clopidogrel 75 mg tablet 75 mg PO DAILY #0 tabs 09/07/25
dapagliflozin propanediol 10 mg tablet 10 mg PO DAILY #0 tabs 09/07/25
lidocaine 4 % topical patch 1 patch topical HS #0 ea 09/07/25
metoprolol succinate 25 mg tablet,extended release 24 hr 25 mg PO BID #0 tabs 09/07/25
rivaroxaban 15 mg tablet (Xarelto) 15 mg PO QPM #0 tabs 09/07/25
spironolactone 25 mg tablet 12.5 mg (1/2 x 25 mg) PO DAILY #0 tabs 09/07/25
valsartan 40 mg tablet 40 mg PO DAILY #0 tabs 09/07/25
Home Medication Changes
lidocaine 4 % topical patch 1 patch topical HS #0 ea 09/07/25
metoprolol succinate 25 mg tablet,extended release 24 hr 25 mg PO BID #0 tabs 09/07/25
rivaroxaban 15 mg tablet (Xarelto) 15 mg PO QPM #0 tabs 09/07/25
spironolactone 25 mg tablet 12.5 mg (1/2 x 25 mg) PO DAILY #0 tabs 09/07/25
valsartan 40 mg tablet 40 mg PO DAILY #0 tabs 09/07/25
Pending Results: No
[2025-09-07] MEDS: XARELTO 15 MG PO (16:38)
[2025-09-07] MEDS: ALDACTONE 12.5 MG PO (16:38)
[2025-09-07] MEDS: LIPITOR 40 MG PO (16:40)
[2025-09-07] MEDS: LANTUS 0.08 UNITS SC (17:03)
[2025-09-07 17:05] LABS: Glucose - Point of Care 186 mg/dl (70-99)
--- NOTE | 2025-09-07 17:21 | PTCARENOTE ---
[facility]
== END 2025-09-07 17:49 | DRG 281 ==
LOC: IVU 18:26
PROVIDERS: Nurse Practitioner; Nurse Practitioner Gerontology; Student in an Organized Health Care Education/Training Program; ADMITTING PHYSICIAN Internal Medicine; ATTENDING PHYSICIAN Internal Medicine; CONSULT PHYSICIAN Thoracic Surgery (Cardiothoracic Vascular Surgery); EMERGENCY PHYSICIAN Emergency Medicine; FAMILY PHYSICIAN Family Medicine; OTHER PHYSICIAN Internal Medicine
PROC: 4A023N8 Measurement of Cardiac Sampling and Pressure, Bilateral, Percutaneous Approach (ICD-10-PCS; 2025-09-02)
PROC: B2111ZZ Fluoroscopy of Multiple Coronary Arteries using Low Osmolar Contrast (ICD-10-PCS; 2025-09-02)
PROC: 02JA3ZZ Inspection of Heart, Percutaneous Approach (ICD-10-PCS; 2025-09-06)
DX: I21.4 Non-ST elevation (NSTEMI) myocardial infarction (principal); E87.1 Hypo-osmolality and hyponatremia; I48.21 Permanent atrial fibrillation; I50.22 Chronic systolic (congestive) heart failure; I35.0 Nonrheumatic aortic (valve) stenosis; E11.51 Type 2 diabetes mellitus with diabetic peripheral angiopathy without gangrene; R09.02 Hypoxemia; Z87.891 Personal history of nicotine dependence; Z79.82 Long term (current) use of aspirin; Z79.4 Long term (current) use of insulin; Z79.899 Other long term (current) drug therapy; Z89.612 Acquired absence of left leg above knee; Z98.42 Cataract extraction status, left eye; Z98.41 Cataract extraction status, right eye; E78.00 Pure hypercholesterolemia, unspecified; Z85.038 Personal history of other malignant neoplasm of large intestine; I27.20 Pulmonary hypertension, unspecified; N40.0 Benign prostatic hyperplasia without lower urinary tract symptoms; I11.0 Hypertensive heart disease with heart failure
CPT/HCPCS: 71046; 80048; 80053; 80061; 82962; 83036; 83735; 83880; 84484; 85014; 85018; 85025; 85027; 85347; 85610; 85730; 92920; 93005; 93306; 93460; 96365; 96366; 97116; 97163; 97167; 97530; 97535; 97542; 99152; 99153; 99291; C1725; C1769; C1887; C1894; Q9967